=== PATIENT | female | born 1960 | race Caucasian/White ===

== ENCOUNTER 2023-10-04 09:10 | Outpatient (OUT) | payer BC, SELFPAY ==
[2023-10-04 09:51] LABS: Basophils Percent Auto 0.3 % (0.2-2.0); Eosinophils Absolute Auto 0.3 10^3/uL (0.0-0.7); Hematocrit 37.2 % (36.0-48.0); Hemoglobin 12.5 g/dL (12.0-16.0); Immature Granulocytes Abs Auto 0.01 10^3/uL (0.00-0.03); Immature Granulocytes Pct Auto 0.1 % (0.0-0.5); Lymphocytes Absolute Auto 1.6 10^3/uL (1.2-3.8); Lymphocytes Percent Auto 23.5 % (20.5-60.0); Mean Corpuscular HGB Conc 33.6 g/dL (29.9-35.2); Mean Corpuscular Hemoglobin 30.8 pg (26.7-34.0); Mean Corpuscular Volume 91.6 fL (81.0-99.0); Mean Platelet Volume 10.5 fL (9.5-13.5); Monocytes Absolute Auto 0.5 10^3/uL (0.3-0.8); Monocytes Percent Auto 6.8 % (1.7-12.0); Neutrophils Absolute Auto 4.5 10^3/uL (1.4-6.5); Neutrophils Percent Auto 65.3 % (43.0-75.0); Platelet Count 198 10^3/uL (150-450); Red Blood Count 4.06 10^6/uL (4.20-5.40); Red Cell Distribution Width 11.9 % (11.0-15.0); White Blood Count 6.9 10^3/uL (4.0-11.0)
[2023-10-04 10:02] LABS: Alanine Aminotransferase 19 U/L (14-59); Albumin Level 3.6 g/dL (3.4-5.0); Alkaline Phosphatase 146 U/L (46-116); Anion Gap 11.9; Aspartate Amino Transferase 19 U/L (15-37); BUN Creatinine Ratio 26.2; Calcium 9.7 mg/dL (8.5-10.1); Carbon Dioxide 29.2 mmol/L (21.0-32.0); Chloride 104 mmol/L (98-107); Estimated GFR (African America >60 (>=60); Estimated GFR (Non-African Ame >60 (>=60); Globulin 3.5 g/dL; Glucose 89 mg/dL (74-106); Magnesium 1.9 mg/dL (1.8-2.4); Phosphorus 3.8 mg/dL (2.6-4.7); Potassium 4.1 mmol/L (3.5-5.1); Sodium 141 mmol/L (136-145); Total Protein 7.1 g/dL (6.4-8.2)
[2023-10-04 10:05] LABS: Percent Iron Saturation 36.2 %
[2023-10-08 12:08] LABS: Vitamin B1 (Thiamine), Blood 126.1 nmol/L (66.5-200.0)
== END 2023-10-04 09:11 | disposition home or self-care (01) ==
PROVIDERS: PCP Family Medicine
DX: E03.9 Hypothyroidism, unspecified (principal); I10 Essential (primary) hypertension; Z98.84 Bariatric surgery status
CPT/HCPCS: 36415; 80053; 82306; 82607; 82728; 82746; 83540; 83550; 83735; 84100; 84425; 85025

== ENCOUNTER 2024-04-06 10:21 | Outpatient (OUT) | payer BC, SELFPAY ==
--- NOTE | 2024-04-06 10:24 | MM_ITS ---
Patient Name: DENI SYLVESTER MR#: [id number] : 1960 Exam Date: 04/06/2024 Ordering Doctor: DR Danelle Aiken M.D. RADIOLOGY REPORT PROCEDURE: MM TOMOSYNTHESIS SCREENING BI COMPARISON: MG MAMM SCREEN ZIA W CAD, 06/29/2019. INDICATIONS: Screening Calculator Name NCI Breast Cancer Risk Assessment Tool 5 Year Breast Cancer Risk 1.10% Lifetime Breast Cancer Risk 5.00% Personal Breast Cancer No Personal Ovarian Cancer No Treatments None Family Cancers Cousin-paternal with breast cancer at age ~60. LOCATION: [facility] BREAST COMPOSITION: There are scattered areas of fibroglandular density. FINDINGS: DIAGNOSTIC CATEGORY 2--BENIGN FINDING. NO CHANGE FROM COMPARISON. Scattered benign-appearing calcifications are present. Scattered benign-appearing lymph nodes are present. RIGHT BREAST: No significant suspicious finding. LEFT BREAST: No significant suspicious finding. RECOMMENDATIONS: ROUTINE MAMMOGRAM AND CLINICAL EVALUATION IN 12 MONTHS. PLEASE NOTE: A NORMAL MAMMOGRAM DOES NOT EXCLUDE THE POSSIBILITY OF BREAST CANCER. A CLINICALLY SUSPICIOUS PALPABLE LUMP SHOULD BE BIOPSIED. Dictated by: Renny Wilder MD on 04/06/2024 at 12:05 Approved by: Renny Wilder MD on 04/06/2024 at 12:07
--- NOTE | 2024-04-06 10:24 | XR_ITS ---
The [address] [address] Patient Name: DENI SYLVESTER MRN: [id number] date: 1960 Sex: F Assigned Patient Location: [facility] Current Patient Location: Accession/Order Number: [id number] Exam Date: 04/06/2024 10:30 Report Date: 04/07/2024 06:33 At the request of: VENANCIO AGUILAR Procedure: XR DEXA axial skeleton EXAMINATION: XR DEXA axial skeleton HISTORY: Menopausal Osteoporosis COMPARISON: No relevant comparison available. TECHNIQUE: Dual-energy X-ray absorptiometry (DXA) was performed. FINDINGS: SPINE ANALYSIS: Average bone mineral density is 1.358 g/cm2. T-score (standard deviation relative to young adult mean): 1.5 . HIP ANALYSIS: Lowest bone mineral density is within the left femoral neck, 0.946 g/cm2. T-score (standard deviation relative to young adult mean): -0.7 . XR/XR DEXA axial skeleton IMPRESSION: World Health Organization Classification: Normal - Low Fracture Risk FRAX: Cannot be calculated. Pharmacologic treatment recommendations * No uniform recommendation applies to all patients. Management plans must be individualized. * Consider initiating pharmacologic treatment in postmenopausal women and men >= 50 years of age who have the following: Primary fracture prevention: * T-score <= - 2.5 at the femoral neck, total hip, lumbar spine, 33% radius (some uncertainty with existing data) by DXA. * Low bone mass (osteopenia: T-score between - 1.0 and - 2.5) at the femoral neck or total hip by DXA with a 10-year hip fracture risk >= 3% or a 10-year major osteoporosis-related fracture risk >= 20% (i.e., clinical vertebral, hip, forearm, or proximal humerus) based on the [place]-adapted FRAXregistered model. Secondary fracture prevention: * Fracture of the hip or vertebra regardless of BMD [4, 5]. * Fracture of proximal humerus, pelvis, or distal forearm in persons with low bone mass (osteopenia: T-score between - 1.0 and - 2.5). The decision to treat should be individualized in persons with a fracture of the proximal humerus, pelvis, or distal forearm who do not have osteopenia or low BMD [12, 13]. Jose Armando MS, Dari SL, Sara KL, Randy EM, Mandeep KG, AJ, Govind ES. The clinician's guide to prevention and treatment of osteoporosis. Osteoporos Int. 2021;33(10):2099-7459. doi: 10.1007/i76963-100-27918-q. Epub 2021Oct 11. Erratum in: Osteoporos Int. 2021Jan 10;: PMID: 42754786; PMCID: [id number]. Electronically authenticated by: FARRAH MARTÍNEZ Date: 04/07/2024 06:33
== END 2024-04-06 10:22 | disposition home or self-care (01) ==
LOC: RAD 10:21
PROVIDERS: PCP Family Medicine; Visit Provider Family Medicine
DX: Z12.31 Encounter for screening mammogram for malignant neoplasm of breast (principal); M81.0 Age-related osteoporosis without current pathological fracture; Z80.3 Family history of malignant neoplasm of breast
CPT/HCPCS: 77063; 77067; 77080

== ENCOUNTER 2025-04-12 08:50 | Outpatient (OUT) | payer BC, SELFPAY ==
--- OUTSIDE RECORDS SUMMARY | 2023-10-09 06:00 | XMS_ITS | Continuity of Care Document ---
Author Organization [facility] Address [address] [facility] [place] [address] Phone Care Team Providers Care Ethics Manager Name Role Phone Lauren Browning CNP Unavailable Unavailable Procedures Procedure Date OFFICE/OUTPATIENT VISIT, EST OFFICE/OUTPATIENT VISIT, EST OFFICE/OUTPATIENT VISIT, EST POSTOP FOLLOW-UP VISIT POSTOP FOLLOW-UP VISIT Sleeve Gastrectomy LAP SLEEVE GASTRECTOMY OFFICE/OUTPATIENT VISIT, EST PSYCH DIAGNOSTIC EVALUATION PSYCL/NRPSYC TST PHY/QHP [facility] PSYCL/NRPSYC TST PHY/QHP OFFICE/OUTPATIENT VISIT, [facility] Advance Directives Directive Yes / No Effective Date File Name No Information Encounters Encounter Description Practice Location Reason(s) For Visit Diagnoses Date Provider Providers Copied on Encounter OFFICE/OUTPATI ENT VISIT, [facility], [address], [place], [place], [id number], [place] tel:[phone] [facility] No Information Nallely Aguilar. [address] [facility] [facility] [address], [place], [place], [id number], [place]. tel:[phone] Referring Provider: Lauren Browning, [address], [place], [address]. tel:[phone] OFFICE/OUTPATI ENT VISIT, [facility], [address] [place] [address] B, [place], [place], [id number], [place] tel:[phone] [facility] No Information Nallely Aguilar. [address] [facility] [address], [place], [place], [id number], [place]. tel:[phone] Referring Provider: Lauren Browning, [facility] [address] [facility], [place], [address]. tel:[phone] OFFICE/OUTPATI ENT VISIT, [facility], [address] [place] [address] B, [place], [id number], [place] tel:[phone] [facility] No Information Nallely Aguilar. [address] [place] [address] [address], [place], [place], [id number], [place]. tel:[phone] Referring Provider: Lauren Browning, [address] [place] [address] [address], [place], [address]. tel:[phone] [facility], [address] [place] [address] B, [place], [id number], [place] tel:[phone] [facility] No Information Nallely Aguilar. [address] [place] [address] [address], [place], [place], [id number], [place]. tel:[phone] Referring Provider: Lauren Browning, [address] [facility] [address], [place], [address]. tel:[phone], [address] [place] [address] B, [place], [id number], [place] tel:[phone] [facility] No Information Nallely Aguilar. [address] [facility], [place], [place], [id number], [place]. tel:[phone] Referring Provider: Lauren Browning, [address] [place] [address] [address], [place], [address]. tel:[phone] [facility], [address] [place] [address] [address], [place], [place], [id number], [place] tel:[phone] [facility] IP No Information Nallely Aguilar. [address], [place], [place], [address], [place]. tel:[phone] Referring Provider: Lauren Browning, [address], [place], [address]. tel:[phone] [facility] [employer] [employer] [facility], [address] [place] [address] [address], [place], [place], [id number], [place] tel:[phone] [facility] IP No Information Malcolm Vivas. [address] [place] [address] [address], [place], [place], [id number], [place]. tel:[phone] Referring Provider: Ortega Romano, [address], [place], [address]. tel:[phone] OFFICE/OUTPATI ENT VISIT, [facility], [address] [place] [address] [address], [place], [place], [id number], [place] tel:[phone] [facility] No Information Malcolm Vivas. [address] [place] [address] [address], [place], [place], [id number], [place]. tel:[phone] Referring Provider: Ortega Romano, [address] [facility] [address], [place], [address]. tel:[phone] PSYCH DIAGNOSTIC EVALUATION [facility], [address] [place] [address] [address], [place], [place], [address], [place] tel:[phone] [facility] No Information Laura Riley. [address] [place] [address] [address], [place], [place], [address], [place]. tel:[phone] Referring Provider: Osvaldo Sanchez, [address] [place] [address] [address], [place], [address]. tel:[phone] OFFICE/OUTPATI ENT VISIT, [facility], [address], [place], [place], [address], [place] tel:[phone] [facility] No Information Malcolm Vivas. [address] [place] [address] [address], [place], [place], [address], [place]. tel:[phone] Referring Provider: Ortega Romano, [address] [place] [address] [address], [place], [address]. tel:[phone] Family History Family Member Type Diagnosis Age At Onset No Information Payers Payer name Insurance type Covered democrat ID Vitaliy lucia(s) Alhaji [id number] Social History Type Description Quantity Date Captured Comments Sex Female Smoking Status No Information Chief Complaint And Reason For Visit No Information Reason For Referral Reason For Referral No Information History Of Present Illness Encounter Date Complaint History Of Prese nt Illness No Information Functional Status Date Functional Assessmen t No Information Instructions Date Instruction Additional Infor mation No Information Assessments Type Assessment Date No Information Patient Care Teams Name Effective Dates (start - stop) Status Members No Information
--- OUTSIDE RECORDS SUMMARY | 2025-04-12 08:55 | XMS_ITS | Clinical Summary ---
Author Organization [facility] Address [address] [place] [address] Care Team Providers Care Rn Hematology Name Role Phone Danelle Aiken MD Primary Care Provider [phone] Allergies Active AllergyReactionsCriticalityNoted DjhhQrjgucrhLfestjrhwxyJfvh17/14/2025 Other Reaction(s): Hives Medications MedicationSigDispense QuantityRefillsLast FilledStart DateEnd DateStatus levothyroxine (Synthroid, Levoxyl) 137 MCG tablet .DFXTRWK12/24/2025Active lisinopril 10 MG tablet .AXLUBSW25/24/2025Active fluticasone (Flonase) 50 MCG/ACT nasal spray Indications:OME (otitis media with effusion), right2 sprays on the right side twice daily. Shake gently. Before first use, prime pump. After use, clean tip and replace cap. 48 g 5Active Active Problems ProblemNoted DateDiagnosed DateHeart huygnn8312/29/20240880Cbzitqfnqxzaiy25/16/2025 Menopausal mykpiwhdzxsm21/16/2025Right otitis media with nevcogoc31/16/2025 Screening mammogram for breast fcragp2412/29/2024Wellness welnzpbnojo98/16/2025 Primary xkjqmxearwgh95/25/2014 Encounters DateTypeDepartmentCare SkwxAdswvtbiuyy67/14/2025Telephone [facility] [place] [facility] [address] [place] [phone] Anna Duran MA PST ynxjbedocbc95/08/2025 9:10 AM EDTOffice Visit [facility] [place] [facility] [address] [place] [address] Nikia Fu MD OME (otitis media with effusion), right (Primary Dx); ETD (Eustachian tube dysfunction), right; Conductive hearing loss of right ear with unrestricted hearing of left ear 03/23/2025 flowsheet [facility] [place] [facility] [address] [place] [address] Nikia Fu MD 03/23/20259402Plthda61/01/2025 9:30 AM EDTClinical Support [facility] [address] [place] [address] Lauren Schulz CCC-A Conductive hearing loss of right ear with unrestricted hearing of left ear (Primary Dx); Right otitis media with lpmnwnaz33/01/2025 flowsheet [facility] [place] [facility] [address] [place] [address] Lauren Schulz CCC-A from Last 3 Months Family History Medical HistoryRelationNameCommentsStrokeFatherCOPDMotherHeart failureMother RelationNameStatusCommentsFatherDeceasedMotherDeceased Social History Tobacco UseTypesPacks/DayYears UsedDateSmoking Tobacco: NeverSmokeless Tobacco: Never Tobacco Cessation:Counseling Given: Not Answered Alcohol UseStandard Drinks/WeekCommentsNever0 (1 standard drink = 0.6 oz pure alcohol)CommentsUnknownSex and Gender InformationValueDate RecordedSex Assigned at BirthNot on fileLegal JlgTiivfw22/15/2023 7:17 PM EDTGender Identity Not on fileSexual OrientationNot on file Last Filed Vital Signs Vital SignReadingTime TakenCommentsBlood Vfysmetp746/7703/23/2025 9:03 AM EDT Usyfb430003/23/2025 9:03 AM EDTTemperature--Respiratory Rate--Oxygen Saturation-- Inhaled Oxygen Concentration--Mgvvyb37.8 kg (165 lb)03/23/2025 9:03 AM EDTHeight 152.4 cm (5')03/23/2025 9:03 AM EDTBody Mass Index32.221 9:03 AM EDT Plan of Treatment DateTypeDepartmentCare Team (Latest Contact Info)Yitxderkxff14/09/2025 9:00 AM ESTOffice Visit [facility] [facility] [address] [facility] [address] [place] [phone] Nikia Fu MD [address] [facility] [address] [place] [address] Procedures Procedure NamePriorityDate/TimeAssociated DiagnosisCommentsAUDITORY FUNCTION BUUIIZcdbbcm67/01/2025 10:15 AM EDT from Last 3 Months Results * Auditory function tests (03/16/2025 10:15 AM EDT) Narrative Lauren Schulz, [facility] - 03/16/2025 10:15 AM EDT Right Ear: Mild to moderate conductive hearing loss above 250 Hz Left Ear: ?? Normal hearing Authorizing ProviderResult TypeResult StatusDehector Schulz [facility]-AAUDIOLOGY SERVICES ORDERABLESFinal Result from Last 3 [place] [address] MemberSubscriberPlan / Payer (Effective 2022-Present)Name:Suzie Peacock Member ID:[id number] Relation to Subscriber:SpouseName:Daniel Peacock Subscriber ID:[id number] Date of :1959 Address: [address] [place] [address] [address] [place] [address] Payer ID:Not on file Type:Not on file Address: [facility] [address] [place] [address] Care Teams Team MemberRelationshipSpecialtyStart DateEnd Date Danelle Aiken MD [address] [place] [address] [facility]12/28/24
--- OUTSIDE RECORDS SUMMARY | 2025-04-12 08:55 | XMS_ITS | Encounter Summary ---
Author Organization [facility] Address [address] [place] [address] Care Team Providers Care Runway Model Name Role Phone Danelle Aiken MD Primary Care Provider [phone] Reason for Visit * ReasonOnset DateCommentsPST agrvqkcdiut56/14/2025 Encounter Details DateTypeDepartmentCare Team (Latest Contact Info)Shzbzofxert23/14/2025Telephone [facility] [facility] [address] [place] [address] Anna Duran MA PST information Social History Tobacco UseTypesPacks/DayYears UsedDateSmoking Tobacco: NeverSmokeless Tobacco: NeverAlcohol UseStandard Drinks/WeekCommentsNever0 (1 standard drink = 0.6 oz pure alcohol)CommentsUnknownSex and Gender InformationValueDate Recorded Sex Assigned at BirthNot on fileLegal RumWdpcct85/15/2023 7:17 PM EDTGender IdentityNot on fileSexual OrientationNot on filedocumented as of this encounter Miscellaneous Notes * Telephone Encounter - Pamela Fu - 04/04/2025 8:50 AM EDT Pt called back/told pt appt info for [facility]. * Telephone Encounter - Anna Duran MA - 03/29/2025 4:14 PM EDT Called left message to call back office. Her PST is scheduled for 04/12 At 9:00 am at [facility] documented in this encounter Plan of Treatment DateTypeDepartmentCare Team (Latest Contact Info)Ldhabbzrqbh79/09/2025 9:00 AM ESTOffice Visit [facility] [address] [facility] [address] [place] [address] Nikia Fu MD [address] [facility] [address] [place] [address] documented as of this encounter Visit Diagnoses Not on filedocumented in this encounter Care Teams Team MemberRelationshipSpecialtyStart DateEnd Date Danelle Aiken MD [address] [place] [phone] PCP - GeneralFamily Medicine12/28/24documented as of this encounter
--- OUTSIDE RECORDS SUMMARY | 2025-04-12 08:55 | XMS_ITS | Clinical Summary ---
Author Organization [facility] Address [address] [place] [address] Care Team Providers Care Education Rep Name Role Phone Unavailable Primary Care Provider Unavailabl e Social History Tobacco UseTypesPacks/DayYears UsedDateSmoking Tobacco: Never AssessedUT Safety & EnvironmentAnswerDate RecordedFear of Current or Ex-PartnerNot on file 08/07/2023Emotionally AbusedNot on file08/07/2023hysically AbusedNot on file 08/07/2023Sexually AbusedNot on file08/07/2023hysically or Sexually AbusedNot on file08/07/2023CommentsUnknownSex and Gender InformationValueDate RecordedSex Assigned at BirthNot on fileLegal QbmLhpcyr67/30/2022 12:38 AM EDT Gender IdentityNot on fileSexual OrientationNot on file Last Filed Vital Signs Vital SignReadingTime TakenCommentsBlood Ygigphui836/8807 2:33 PM EDT Pulse--Temperature--Respiratory Rate--Oxygen Qxzmuyoiru43%12/27/2020 2:30 PM EDT Inhaled Oxygen Concentration--Nehxqx102 kg (242 lb)12/27/2020 2:27 PM EDTHeight 154.9 cm (5' 1 )12/27/2020 2:27 PM EDTBody Mass Index45.7312/27/2020 2:27 PM EDT Plan of Treatment Not on file
--- NOTE | 2025-04-12 09:00 | ECG_ITS ---
The [facility] Test Date: 2025-04-12 Pat Name: DENI SYLVESTER Department: Room: - Gender: Female [employer] Consultant: : 1960 Requested By: LEANDER HEARD Order Number: [id number] Reading MD: DONELL CAMPOS Measurements Intervals [place] Rate: 57 P: 8 MD: 149 QRS: 44 QRSD: 130 T: 11 QT: 414 QTc: 403 Interpretive Statements SINUS BRADYCARDIA RIGHT BUNDLE BRANCH BLOCK [120+ ms QRS DURATION, UPRIGHT V1, 40+ ms S IN I/aVL/V4/V5/V6] No previous ECG available for comparison Electronically Signed On 04-12-2025 13:13:37 EDT by DONELL CAMPOS
[2025-04-12 09:46] LABS: Hematocrit 37.5 % (36.0-48.0); Hemoglobin 12.7 g/dL (12.0-16.0); Immature Granulocytes Abs Auto 0.00 10^3/uL (0.00-0.03); Immature Granulocytes Pct Auto 0.0 % (0.0-0.5); Lymphocytes Absolute Auto 1.5 10^3/uL (1.2-3.8); Mean Corpuscular HGB Conc 33.9 g/dL (29.9-35.2); Mean Corpuscular Hemoglobin 31.4 pg (26.7-34.0); Mean Corpuscular Volume 92.8 fL (81.0-99.0); Platelet Count 179 10^3/uL (150-450); Red Blood Count 4.04 10^6/uL (4.20-5.40); White Blood Count 6.0 10^3/uL (4.0-11.0)
[2025-04-12 12:47] LABS: INR 0.95; Partial Thromboplastin Time 27.5 sec (22.3-36.2); Prothrombin Time 10.1 sec (9.0-11.6)
== END 2025-04-12 08:51 | disposition home or self-care (01) ==
LOC: PST 08:52
PROVIDERS: PCP Family Medicine; Visit Provider Otolaryngology
DX: Z01.810 Encounter for preprocedural cardiovascular examination (principal); Z01.812 Encounter for preprocedural laboratory examination; H69.03 Patulous Eustachian tube, bilateral
CPT/HCPCS: 85025; 85610; 85730; 93005

== ENCOUNTER 2025-04-21 10:22 | Day surgery (SDC) | payer BC, SELFPAY ==
[2025-04-12 09:30] VITALS: BP 140/85; PULSE 61; TEMP 36.3; O2SAT 98; BMI 30.6
[2025-04-21] VITALS (9 sets, daily range): BP systolic 162–171; BP diastolic 64–78; PULSE 75–85; TEMP 36.1; O2SAT 96–99; BMI 30.6
--- NOTE | 2025-04-21 | OP_ITS ---
OPERATION DATE: 04/21/2025 PRIMARY CARE PHYSICIAN: Danelle Aiken M.D. SURGEON: Nikia Fu M.D. PREOPERATIVE DIAGNOSIS: Right eustachian tube dysfunction and otitis media with effusion. POSTOPERATIVE DIAGNOSIS: Right eustachian tube dysfunction and otitis media with effusion PROCEDURE: Right myringotomy and tube. ANESTHESIA: General LMA. COMPLICATIONS: None. FINDINGS: Right serous effusion. No nasopharyngeal pathology. INDICATIONS: This 64-year-old woman presented with right otitis media with effusion, unresponsive to aggressive medical management. PROCEDURE: Patient identified in the holding area and taken back to the OR where she was placed in the supine position. After induction of general anesthesia by LMA, two Afrin soaked pledgets were placed in the right side of the nose. Then the right ear was approached with the otomicroscope. An anterior radial myringotomy was performed and a modified Yuri?s T-tube was folded, inserted through the myringotomy and opened in the middle ear using microdissection. Then the Afrin soaked patties were removed, and a 0 degree nasal endoscope was used to examine the nasopharynx and verify that there was no sign of a nasopharyngeal carcinoma. Patient was then awakened and taken to the recovery room in good condition. GERALDINE
--- OUTSIDE RECORDS SUMMARY | 2025-04-21 10:28 | XMS_ITS | Encounter Summary ---
Author Organization [facility] Address [address] [facility] [place] [address] Care Team Providers Care Director Of Field Sales Name Role Phone Danelle Aiken MD Primary Care Provider [phone] Reason for Visit * ReasonOnset DateCommentshorse riding after tube?04/13/2025 Encounter Details DateTypeDepartmentCare Team (Latest Contact Info)Rgliwsagqvv38/29/2025Telephone [facility] [address] [place] [address] Nikia Fu MD [address] [place] [address] horse riding after tube? Social History Tobacco UseTypesPacks/DayYears UsedDateSmoking Tobacco: NeverSmokeless Tobacco: NeverAlcohol UseStandard Drinks/WeekCommentsNever0 (1 standard drink = 0.6 oz pure alcohol)CommentsUnknownSex and Gender InformationValueDate Recorded Sex Assigned at BirthNot on fileLegal EpeHilomk54/15/2023 7:17 PM EDTGender IdentityNot on fileSexual OrientationNot on filedocumented as of this encounter Miscellaneous Notes * Telephone Encounter - Pamela Fu - 04/13/2025 3:27 PM EDT Left a detailed message on pt's vm. * Telephone Encounter - Nikia Fu MD - 04/13/2025 2:40 PM EDT She should not go horse riding for at least 24 hours after procedure * Telephone Encounter - Pamela Fu - 04/13/2025 1:55 PM EDT Pt is scheduled for tube 04/21/25. She wants to know if you can go horse back riding after the tube is put in. documented in this encounter Plan of Treatment DateTypeDepartmentCare Team (Latest Contact Info)Efzqzaqshyl80/09/2025 9:00 AM ESTOffice Visit [facility] [address] [facility] [address] [place] [address] Nikia Fu MD [address] [facility] [address] [place] [address] documented as of this encounter Visit Diagnoses Not on filedocumented in this encounter Care Teams Team MemberRelationshipSpecialtyStart DateEnd Date Danelle Aiken MD [address] [place] [phone] PCP - GeneralFamily Medicine12/28/24documented as of this encounter
--- OUTSIDE RECORDS SUMMARY | 2025-04-21 10:28 | XMS_ITS | Clinical Summary ---
Author Organization [facility] Address [address] [place] [address] Care Team Providers Care Corn Grower Name Role Phone Danelle Aiken MD Primary Care Provider [phone] Allergies Active AllergyReactionsCriticalityNoted KlovGwbfhjqcTpnpmposyovNhel83/14/2025 Other Reaction(s): Hives Medications MedicationSigDispense QuantityRefillsLast FilledStart DateEnd DateStatus levothyroxine (Synthroid, Levoxyl) 137 MCG tablet .ITMRDDN04/24/2025Active lisinopril 10 MG tablet .OWUMSJD97/24/2025Active fluticasone (Flonase) 50 MCG/ACT nasal spray Indications:OME (otitis media with effusion), right2 sprays on the right side twice daily. Shake gently. Before first use, prime pump. After use, clean tip and replace cap. 48 g 5Active Active Problems ProblemNoted DateDiagnosed DateHeart ipfase5512/29/20243587Gklnknceafxaob74/16/2025 Menopausal gfaotzasfbgx90/16/2025Right otitis media with qvlhegjz67/16/2025 Screening mammogram for breast mlfxta7912/29/2024Wellness gqeyhkczvfq99/16/2025 Primary nbelbouddvmk32/25/2014 Encounters DateTypeDepartmentCare DogyQjhlhflsbji38/29/2025Telephone [facility] [address] [place] [address] [place] [address] Nikia Fu MD horse riding after tube?04/12/2025linisync Result Encounter [facility] External Department Unsolicited Nikia Fu MD 04/12/2025linisync Result Encounter [facility] External Department Unsolicited Nikia Fu MD 03/29/2025Telephone [facility] [address] [facility] [address] [place] [phone] Anna Duran MA PST vefrgyyjjvk63/08/2025 9:10 AM EDTOffice Visit [facility] [address] [facility] [address] [place] [address] Nikia Fu MD OME (otitis media with effusion), right (Primary Dx); ETD (Eustachian tube dysfunction), right; Conductive hearing loss of right ear with unrestricted hearing of left ear 03/23/2025amboo flowsheet [facility] [address] [address] [place] [address] Nikia Fu MD 03/23/20258009Yopnuz56/01/2025 9:30 AM EDTClinical Support [facility] [address] [place] [address] Lauren Schulz CCC-A Conductive hearing loss of right ear with unrestricted hearing of left ear (Primary Dx); Right otitis media with xsbnbcri49/01/2025amboo flowsheet [facility] [address] [facility] [address] [place] [address] Lauren Schulz CCC-A from Last 3 Months Family History Medical HistoryRelationNameCommentsStrokeFatherCOPDMotherHeart failureMother RelationNameStatusCommentsFatherDeceasedMotherDeceased Social History Tobacco UseTypesPacks/DayYears UsedDateSmoking Tobacco: NeverSmokeless Tobacco: Never Tobacco Cessation:Counseling Given: Not Answered Alcohol UseStandard Drinks/WeekCommentsNever0 (1 standard drink = 0.6 oz pure alcohol)CommentsUnknownSex and Gender InformationValueDate RecordedSex Assigned at BirthNot on fileLegal ZlhUgmmhf17/15/2023 7:17 PM EDTGender Identity Not on fileSexual OrientationNot on file Last Filed Vital Signs Vital SignReadingTime TakenCommentsBlood Omamkwed140/7703/23/2025 9:03 AM EDT Qmnbi198903/23/2025 9:03 AM EDTTemperature--Respiratory Rate--Oxygen Saturation-- Inhaled Oxygen Concentration--Somotp42.8 kg (165 lb)03/23/2025 9:03 AM EDTHeight 152.4 cm (5')03/23/2025 9:03 AM EDTBody Mass Index32.221 9:03 AM EDT Plan of Treatment DateTypeDepartmentCare Team (Latest Contact Info)Tcwrtnntdgb27/09/2025 9:00 AM ESTOffice Visit [facility] [address] [facility] [address] [place] [address] Nikia Fu MD [address] [facility] [address] [place] [address] Procedures Procedure NamePriorityDate/TimeAssociated DiagnosisCommentsCCF APTTRoutine 04/12/2025 9:30 AM EDT SRMCOH PROTHROMBIN TIME INR W/O PRWASftmdph95/28/2025 9:30 AM EDT ALL CBC WITH AUTO YUCIOhedrlh83/28/2025 9:30 AM EDT ECG 12-LEAD04/12/2025 7:28 AM EDT AUDITORY FUNCTION ODXPNSdgrzla48/01/2025 10:15 AM EDT from Last 3 Months Results * SRMCOH PROTHROMBIN TIME INR W/O COUM (04/12/2025 9:30 AM EDT)ComponentValueRef RangeTest MethodAnalysis TimePerformed AtPathologist SignaturePROTHROMBIN TIME 10.19.0 - 11.6 secTBHTBH INR0.95TBHComment: DESIRED INR: 2.0-3.0 CONDITIONS NOT LISTED BELOW 2.5-3.5 FOR PROSTHETIC HEART VALVE REPLACEMENT 2.5-3.5 RECURRENT THROMBOSIS Specimen (Source)Anatomical Location / LateralityCollection Method / Volume Collection TimeReceived Time04/12/2025 9:30 AM EDT1 9:36 AM EDT Narrative [facility] - 04/12/2025 1:11 PM EDT Authorizing ProviderResult TypeResult StatusHilary H Timmis [facility]LL[place]ISYNCFinal ResultPerforming OrganizationAddressty/State/ZIP CodePhone Number [facility] * [facility] APTT (04/12/2025 9:30 AM EDT)ComponentValueRef RangeTest MethodAnalysis TimePerformed AtPathologist SignaturePARTIAL THROMBOPLASTIN TIME27.522.3 - 36.2 secTBHSpecimen (Source)Anatomical Location / LateralityCollection Method / VolumeCollection TimeReceived Time04/12/2025 9:30 AM EDT1 9:36 AM EDT Narrative [facility] - 04/12/2025 1:11 PM EDT Authorizing ProviderResult TypeResult StatusHilary H Timmis [facility]LLLINISYNCFinal ResultPerforming OrganizationAddressCity/State/ZIP CodePhone Number [facility] * (ABNORMAL) ALL CBC WITH AUTO DIFF (04/12/2025 9:30 AM EDT)ComponentValueRef RangeTest MethodAnalysis TimePerformed AtPathologist SignatureTBH WBC6.04.0 - 11.0 10 3/uLTBHTBH RBC4.04(L)4.20 - 5.40 10 6/uLTBHTBH HGB12.712.0 - 16.0 g/dL TBHTBH HCT37.536.0 - 48.0 %TBHTBH MCV92.881.0 - 99.0 fLTBHTBH MCH31.426.7 - 34.0 pgTBHTBH MCHC33.929.9 - 35.2 g/dLTBHTBH RDW11.911.0 - 15.0 %TBHTBH TKP293 150 - 450 10 3/uLTBHTBH MPV10.49.5 - 13.5 fLTBHNEUTROPHILS PERCENT AUTO62.6 43.0 - 75.0 %TBHLYMPHOCYTES PERCENT AUTO25.020.5 - 60.0 %TBHMONOCYTES PERCENT AUTO7.21.7 - 12.0 %TBHTBH EO %4.90.9 - 7.0 %TBHBASOPHILS PERCENT AUTO0.30.2 - 2.0 %TBHIMMATURE GRANULOCYTES PCT AUTO0.00.0 - 0.5 %TBHNEUTROPHILS ABSOLUTE AUTO3.71.4 - 6.5 10 3/uLTBHLYMPHOCYTES ABSOLUTE AUTO1.51.2 - 3.8 10 3/uLTBH MONOCYTES ABSOLUTE AUTO0.40.3 - 0.8 10 3/uLTBHTBH EO #0.30.0 - 0.7 10 3/uLTBH BASOPHILS ABSOLUTE AUTO0.00.0 - 0.1 10 3/uLTBHIMMATURE GRANULOCYTES ABS AUTO 0.000.00 - 0.03 10 3/uLTBHSpecimen (Source)Anatomical Location / Laterality Collection Method / VolumeCollection TimeReceived Time04/12/2025 9:30 AM EDT 04/12/2025 9:47 AM EDT Narrative [facility] - 04/12/2025 9:48 AM EDT Authorizing ProviderResult TypeResult StatusHilary H Timmis MDCLINISYNCFinal ResultPerforming OrganizationAddressCity/State/ZIP CodePhone Number [facility] * ECG 12-LEAD (04/12/2025 7:28 AM EDT)Anatomical RegionLateralityModalityOther Specimen (Source)Anatomical Location / LateralityCollection Method / Volume Collection TimeReceived Time04/12/2025 7:28 AM EDT Narrative 04/12/2025 1:13 PM EDT [facility] ?[address] ? [place] [address] ? Electrocardiograph Report ? Signed ? Patient: DENI SYLVESTER L ? MR#: [id number] ?? : 1960 ?Acct:[id number] ?? Age/Sex: 64 / F ?ADM Date: 04/12/25 ?? Loc: PST ? Attending Dr: Nikia Fu M.D. ? Ordering Physician: Nikia Fu M.D. ?? Date of Service: 04/12/25 ?? Procedure(s): ECG 12 lead ?? Accession Number(s): [id number] ? cc: ?[facility] ? Test Date: ?2025-04-12 ?? Pat Name: ? DENI NGA ?Department: ? Room: ? - ?? Gender: ? Female ? 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 Requested By: NIKIA TIMMIS ?? Order Number: [id number] ?Reading MD: ?? FILIBERTO SHELLEY ? Measurements ?? Intervals ?[place] ? Rate: ? 57 ? P: ?8 ?? MN: ? 149 ?QRS: ?44 ?? QRSD: ? 130 ?T: ?11 ?? QT: ? 414 ? QTc: ?403 ? Interpretive Statements ?? SINUS BRADYCARDIA ?? RIGHT BUNDLE BRANCH BLOCK [120+ ms QRS DURATION, UPRIGHT V1, 40+ ms S IN ?? I/aVL/V4/V5/V6] ?? No previous ECG available for comparison ?? Electronically Signed On 04-12-2025 13:13:37 EDT by FILIBERTO SHELLEY ? Dictated By: ?Filiberto Shelley M.D. ? Signed By: ?10/28/25 1313 ? DD/ 7 ? TD/TT: ? Dental Insurance Biller: Procedure Note Radiology, Radiologist, - 04/12/2025 [place] [address] Electrocardiograph Report Signed Patient: DENI SYLVESTER LMR#: [id number] : 1960cct:[id number] Age/Sex: 64 / FADM Date: 04/12/25 Loc: [facility] Attending Dr: Nikia Fu M.D. Ordering Physician: Nikia Fu M.D. 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 Signed By:04/12/25 1313 DD/ 7 TD/TT: Dental Insurance Biller: Authorizing ProviderResult TypeResult StatusHilamelody Fu MDCLINISYNC IMAGING Final Result * Auditory function tests (03/16/2025 10:15 AM EDT) Narrative Lauren Schulz, [facility] - 03/16/2025 10:15 AM EDT Right Ear: Mild to moderate conductive hearing loss above 250 Hz Left Ear: ?? Normal hearing Authorizing ProviderResult TypeResult StatusJhoanjackie Mckeon Zeus [facility] SERVICES ORDERABLESFinal Result from Last 3 Months Insurance Care Teams Team MemberRelationshipSpecialtyStart DateEnd Date Danelle Aiken MD [address] [place] [phone] PCP - GeneralFamily Medicine12/28/24
--- OUTSIDE RECORDS SUMMARY | 2025-04-21 10:28 | XMS_ITS | Encounter Summary ---
Author Organization [facility] Address [address] [facility] [place] [address] Care Team Providers Care Lacing Presser Name Role Phone Danelle Aiken MD Primary Care Provider Encounter Details DateTypeDepartmentCare Team (Latest Contact Info)Ucfniiooeru70/28/2025linisync Result Encounter [facility] External Department Unsolicited Nikia Fu MD [address] [facility] [address] [place] [address] Social History Tobacco UseTypesPacks/DayYears UsedDateSmoking Tobacco: NeverSmokeless Tobacco: NeverAlcohol UseStandard Drinks/WeekCommentsNever0 (1 standard drink = 0.6 oz pure alcohol)CommentsUnknownSex and Gender InformationValueDate Recorded Sex Assigned at BirthNot on fileLegal BfkXalfrg98/15/2023 7:17 PM EDTGender IdentityNot on fileSexual OrientationNot on filedocumented as of this encounter Plan of Treatment DateTypeDepartmentCare Team (Latest Contact Info)Sqvkxovmxnc10/09/2025 9:00 AM ESTOffice Visit [facility] [place] [facility] [address] [place] [address] Nikia Fu MD [address] [place] [address] documented as of this encounter Procedures Procedure NamePriorityDate/TimeAssociated DiagnosisCommentsSRMCOH PROTHROMBIN TIME INR W/O AYKSGqkcthz29/28/2025 9:30 AM EDT [facility] RECKCtqevjx63/28/2025 9:30 AM EDT ALL CBC WITH AUTO CRVQHvyvhve93/28/2025 9:30 AM EDT documented in this encounter Results * [facility] APTT (04/12/2025 9:30 AM EDT)ComponentValueRef RangeTest MethodAnalysis TimePerformed AtPathologist SignaturePARTIAL THROMBOPLASTIN TIME27.522.3 - 36.2 secTBHSpecimen (Source)Anatomical Location / LateralityCollection Method / VolumeCollection TimeReceived Time04/12/2025 9:30 AM EDT1 9:36 AM EDT Narrative [facility] - 04/12/2025 1:11 PM EDT Authorizing ProviderResult TypeResult StatusHilary H Timmis MDCLINISYNCFinal ResultPerforming OrganizationAddressCity/State/ZIP CodePhone Number [facility] * SRMCOH PROTHROMBIN TIME INR W/O COUM (04/12/2025 9:30 AM EDT)ComponentValueRef RangeTest MethodAnalysis TimePerformed AtPathologist SignaturePROTHROMBIN TIME 10.19.0 - 11.6 secTTB INR0.95TBHComment: DESIRED INR: 2.0-3.0 CONDITIONS NOT LISTED BELOW 2.5-3.5 FOR PROSTHETIC HEART VALVE REPLACEMENT 2.5-3.5 RECURRENT THROMBOSIS Specimen (Source)Anatomical Location / LateralityCollection Method / Volume Collection TimeReceived Time04/12/2025 9:30 AM EDT1 9:36 AM EDT Narrative [facility] - 04/12/2025 1:11 PM EDT Authorizing ProviderResult TypeResult StatusHilary H Timmis MDCLINISYNCFinal ResultPerforming OrganizationAddressCity/State/ZIP CodePhone Number [facility] * (ABNORMAL) ALL CBC WITH AUTO DIFF (04/12/2025 9:30 AM EDT)ComponentValueRef RangeTest MethodAnalysis TimePerformed AtPathologist SignatureTBH WBC6.04.0 - 11.0 10 3/uLTBHTBH RBC4.04(L)4.20 - 5.40 10 6/uLTBHTBH HGB12.712.0 - 16.0 g/dL TBHTBH HCT37.536.0 - 48.0 %TBHTBH MCV92.881.0 - 99.0 fLTBHTBH MCH31.426.7 - 34.0 pgTBHTBH MCHC33.929.9 - 35.2 g/dLTBHTBH RDW11.911.0 - 15.0 %TBHTBH HMU551 150 - 450 10 3/uLTBHTBH MPV10.49.5 - [...] H Timmis MDCLINISYNCFinal ResultPerforming OrganizationAddressCity/State/ZIP CodePhone Number [facility] documented in this encounter Visit Diagnoses Not on filedocumented in this encounter Care Teams Team MemberRelationshipSpecialtyStart DateEnd Date Danelle Aiken MD [address] [place] [address] PCP - GeneralFamily Medicine12/28/24documented as of this encounter
--- OUTSIDE RECORDS SUMMARY | 2025-04-21 10:28 | XMS_ITS | Clinical Summary ---
Author Organization [facility] Address [address] [place] [address] Care Team Providers Care Pearl Peller Name Role Phone Unavailable Primary Care Provider Unavailabl e Social History Tobacco UseTypesPacks/DayYears UsedDateSmoking Tobacco: Never AssessedUT Safety & EnvironmentAnswerDate RecordedFear of Current or Ex-PartnerNot on file 08/07/2023Emotionally AbusedNot on file08/07/2023hysically AbusedNot on file 08/07/2023Sexually AbusedNot on file08/07/2023hysically or Sexually AbusedNot on file08/07/2023CommentsUnknownSex and Gender InformationValueDate RecordedSex Assigned at BirthNot on fileLegal YbmNwjczm01/30/2022 12:38 AM EDT Gender IdentityNot on fileSexual OrientationNot on file Last Filed Vital Signs Vital SignReadingTime TakenCommentsBlood Hyptvubh297/8807 2:33 PM EDT Pulse--Temperature--Respiratory Rate--Oxygen Kopobsjgkm28%12/27/2020 2:30 PM EDT Inhaled Oxygen Concentration--Habcet338 kg (242 lb)12/27/2020 2:27 PM EDTHeight 154.9 cm (5' 1 )12/27/2020 2:27 PM EDTBody Mass Index45.7312/27/2020 2:27 PM EDT Plan of Treatment Not on file
--- OUTSIDE RECORDS SUMMARY | 2025-04-21 10:28 | XMS_ITS | Encounter Summary ---
Author Organization [facility] Address [address] [facility] [place] [address] Care Team Providers Care Economic Forecaster Name Role Phone Danelle Aiken MD Primary Care Provider [phone] Encounter Details DateTypeDepartmentCare Team (Latest Contact Info)Enruxbaoyiq50/28/2025linisync Result Encounter [facility] External Department Unsolicited Leander Fu MD [address] [place] [address] Social History Tobacco UseTypesPacks/DayYears UsedDateSmoking Tobacco: NeverSmokeless Tobacco: NeverAlcohol UseStandard Drinks/WeekCommentsNever0 (1 standard drink = 0.6 oz pure alcohol)CommentsUnknownSex and Gender InformationValueDate Recorded Sex Assigned at BirthNot on fileLegal MgwFfpcax80/15/2023 7:17 PM EDTGender IdentityNot on fileSexual OrientationNot on filedocumented as of this encounter Plan of Treatment DateTypeDepartmentCare Team (Latest Contact Info)Oohhlnecnqm36/09/2025 9:00 AM ESTOffice Visit [facility] [place] [facility] [address] [place] [address] Leander Fu MD [address] [place] [place] [address] documented as of this encounter Procedures Procedure NamePriorityDate/TimeAssociated DiagnosisCommentsECG 12-LEAD04/12/2025 7:28 AM EDT documented in this encounter Results * ECG 12-LEAD (04/12/2025 7:28 AM EDT)Anatomical RegionLateralityModalityOther Specimen (Source)Anatomical Location / LateralityCollection Method / Volume Collection TimeReceived Time04/12/2025 7:28 AM EDT Narrative 04/12/2025 1:13 PM EDT [facility] ?[address] ? [place] [address] ? Electrocardiograph Report ? Signed ? Patient: NGA,SUZIE L ? MR#: [id number] ?? : 1960 ?Acct:[id number] ?? Age/Sex: 64 / F ?ADM Date: 04/12/25 ?? Loc: PST ? Attending Dr: Leander Fu M.D. ? Ordering Physician: Leander Fu M.D. ?? Date of Service: 04/12/25 ?? Procedure(s): ECG 12 lead ?? Accession Number(s): [id number] ? cc: ?[facility] ? Test Date: ?2025-04-12 ?? Pat Name: ? SUZIE NGA ?Department: ? Room: ? - ?? Gender: ? Female ? 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 Requested By: LEANDER FU ?? Order Number: [id number] ?Reading MD: ?? DONELL SHELLEY ? Measurements ?? Intervals ?[place] ? Rate: ? 57 ? P: ?8 ?? [place]: ? 149 ?QRS: ?44 ?? QRSD: ? 130 ?T: ?11 ?? QT: ? 414 ? QTc: ?403 ? Interpretive Statements ?? SINUS BRADYCARDIA ?? RIGHT BUNDLE BRANCH BLOCK [120+ ms QRS DURATION, UPRIGHT V1, 40+ ms S IN ?? I/aVL/V4/V5/V6] ?? No previous ECG available for comparison ?? Electronically Signed On 04-12-2025 13:13:37 EDT by DONELL SHELLEY ? Dictated By: ?Donell Shelley M.D. ? Signed By: ?04/12/25 1313 ? DD/ 7 ? TD/TT: ? Bioprocessing Manufacturing Technician: Procedure Note Radiology, Radiologist, MD - 04/12/2025 [place] [address] Electrocardiograph Report Signed Patient: SUZIE SYLVESTER LMR#: [id number] : 2Acct:[id number] Age/Sex: 64 / FADM Date: 04/12/25 Loc: PST Attending Dr: Leander Fu M.D. Ordering Physician: Leander Fu M.D. 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 Signed By:04/12/25 1313 DD/ 0728 TD/TT: Bioprocessing Manufacturing Technician: Authorizing ProviderResult TypeResult StatusHilamelody Fu MDCLINISYNC IMAGING Final Result documented in this encounter Visit Diagnoses Not on filedocumented in this encounter Care Teams Team MemberRelationshipSpecialtyStart DateEnd Date Danelle Aiken MD [address] [place] [address] PCP - GeneralFamily Medicine12/28/24documented as of this encounter
--- OUTSIDE RECORDS SUMMARY | 2025-04-21 10:30 | XMS_ITS | CCD ---
Author Organization [facility] Care Team Providers Care Health Associate Name Role Phone RENÉE, DR COOK Admitting Unavailable RENÉE, DR COOK Attending Unavailable RENÉE, DR COOK Consulting Unavailable LAUREN, DR DANELLE Burton Primary Care Unavailable LAUREN, DR DANELLE Burton Primary Care Unavailable RENÉE, DR COOK Attending Unavailable RENÉE, DR COOK Consulting Unavailable RENÉE, DR COOK Admitting Unavailable LAUREN, DR DANELLE Burton Consulting Unavailable LAUREN, DR DANELLE Burton Primary Care Unavailable LAUREN, DR DANELLE Burton Admitting Unavailable LAUREN, DR DANELLE Burton Attending Unavailable Danelle Aguilar MD Primary Care Provider NIKIA HEARD Attending Unavailable LAUREN SCHULZ Attending Unavailable NIKIA HEARD Attending Unavailable Danelle Aguilar MD Primary Care Provider Allergies Allergy ClassificationReported Allergen(s)Allergy TypeDate of OnsetReaction(s) Facility (12 sources)FenofibrateDrug Zfcthxy36-30-0887[facility] Medications Current Medications MedicationDrug Class(es)DatesSig (Normalized)Sig (Original)fluticasone propionate 0.05 mg/actuat metered dose nasal spray (11 sources)CorticosteroidStart: 35-35-5804ffkmwbgbrer (Flonase) 50 MCG/ACT nasal spray Indications: OME (otitis media with effusion), right 2sprays on the right side twice daily. Shake gently. Before first use, prime pump. After use, clean tip and replace cap. 48 g 3 01/04/2025 Activelevothyroxine sodium 0.137 mg oral tablet (12 sources)l-ThyroxineStart: 19-40-6643jpjbovmdvcqzh (Synthroid, Levoxyl) 137 MCG tablet .COMPLEX 09/06/2024 Activelisinopril 10 mg oral tablet (12 sources)Angiotensin Converting Enzyme InhibitorStart: 22-24-8737mwendldhvr 10 MG tablet .COMPLEX 09/06/2024 ActivepredniSONE 20 mg oral tablet (2 sources)Start: 01-04-2025 End: 05-96-8623fwoc 1 tablet by mouth in the morningpredniSONE (Deltasone) 20 MG tablet Indications: OME (otitis media with effusion), right Take 1 tablet (20 mg) by mouth in the morning and 1 tablet (20 mg) before bedtime. Do all this for 6 days. 12 tablet 01/04/2025 01/10/2025 Active Problems Active Problems Problem ClassificationProblemDateDocumented DateEpisodic/ChronicEssential hypertension (17 sources)Essential (primary) hypertension; Translations: [Essential hypertension]Onset: 61-64-9124PgsdcqmXvvyzxdjqxoe (12 sources)Menopausal osteoporosis; Translations: [Age-related osteoporosis without current pathological fracture]Onset: 647398-44-7430WxponqhVrwyv ear and sense organ disorders (3 sources)Conductive hearing loss, unilateral, right ear, with unrestricted hearing on the contralateral side; Translations: [Conductive hearing loss, unilateral]57-40-9439SsglgtdClihz gastrointestinal disorders (5 sources)Bariatric surgery status; Translations: [BARIATRIC SURGERY STATUS] Onset: 74-72-0603HcyijrtlIjuhhgf disorders (13 sources)Hypothyroidism, unspecified; Translations: [Hypothyroidism]Onset: hronic Past or Other Problems Problem ClassificationProblemDateDocumented DateEpisodic/ChronicHeart valve disorders (12 sources)Heart murmur; Translations: [Cardiac murmur, unspecified]Onset: 898883-47-7126XjorselmGeewd screening for suspected conditions (not mental disorders or infectious disease) (12 sources)Patient encounter status; Translations: [Encounter for screening mammogram for malignant neoplasm of breast]Onset: [id number] Otitis media and related conditions (19 sources)Otitis media; Translations: [Unspecified nonsuppurative otitis media, right ear]Onset: 037636-99-3939Wjklqctr Results Test NameValueInterpretationReference RangeFacilityALL CBC WITH AUTO DIFFon 15-95-5802KGSVGUGYF ABSOLUTE AUTO0.0NOMS HealthcareBasophils/100 WBC (Bld)0.3 % 0.2 - 2.0 %NOMS HealthcareEosinophils/100 WBC (Bld)4.9 %0.9 - 7.0 %[facility] CenterErythrocyte distribution width (RBC) [Ratio]11.9 %11.0 - 15.0 %NOMCox NorthHematocrit (Bld) [Volume fraction]37.5 %36.0 - 48.0 %[facility] Hemoglobin (Bld) [Mass/Vol]12.7 g/dL12.0 - 16.0 g/dLSt. Joseph Medical CenterIMMATURE GRANULOCYTES ABS AUTO0.00NOWestern Missouri Medical CenterImmature granulocytes/100 WBC (Bld)0.0 % 0.0 - 0.5 %[facility] CenterInterpretation and review of laboratory results AbnormalNOWestern Missouri Medical CenterLYMPHOCYTES ABSOLUTE AUTO1.5[facility] Lymphocytes/100 WBC (Bld)25.0 %20.5 - 60.0 %[facility] HospitalH (RBC) [Entitic mass]31.4 pg26.7 - 34.0 pgSt. Joseph Medical CenterMCHC (RBC) [Mass/Vol]33.9 g/dL29.9 - 35.2 g/dLSt. Joseph Medical CenterMCV (RBC) [Entitic vol]92.8 fL81.0 - 99.0 fLSt. Joseph Medical CenterMONOCYTES ABSOLUTE AUTO0.4NOMS HealthcareMonocytes/100 WBC (Bld)7.2 % 1.7 - 12.0 %[facility] CenterNEUTROPHILS ABSOLUTE AUTO3.7[facility] Neutrophils/100 WBC (Bld)62.6 %43.0 - 75.0 %[facility] CenterPlatelet mean volume (Bld) [Entitic vol]10.4 fL9.5 - 13.5 fLNOWestern Missouri Medical CenterTBH EO #0.3[facility] TBH RAO202NMRL [facility] RBC4.04LowNOMS Western Reserve HospitalTB WBC6.0[facility] HealthcareECG 12-LEADon 79-92-3330[address] [address] Electrocardiograph Report Signed Patient: DENI PEACOCK MR#: [id number] : 1960 Acct:[id number] Age/Sex: 64 / F ADM Date: 04/12/25 Loc: PST Attending Dr: Nikia Heard M.D. Ordering Physician: Nikia Heard M.D. Date of Service: 04/12/25 Procedure(s): ECG 12 lead Accession Number(s): [id number] cc: [facility] Test Date: 2025-04-12 Pat Name: DENI PEACOCK Department: Room: - Gender: Female [employer]: : 1960 Requested By: NIKIA HEARD Order Number: [id number] Reading MD: FILIBERTO SHELLEY Measurements Intervals [place] Rate: 57 P: 8 NM: 149 QRS: 44 QRSD: 130 T: 11 QT: 414 QTc: 403 Interpretive Statements SINUS BRADYCARDIA RIGHT BUNDLE BRANCH BLOCK [120+ ms QRS DURATION, UPRIGHT V1, 40+ ms S IN I/aVL/V4/V5/V6] No previous ECG available for comparison Electronically Signed On 04-12-2025 13:13:37 EDT by FILIBERTO SHELLEY Dictated By: Filiberto Shelley M.D. Signed By: 04/12/25 1313 DD/ 0728 TD/TT: Architectural Examiner:TBHRadiology, Radiologist, - 04/12/2025 [place] [address] Electrocardiograph Report Signed Patient: DENI PEACOCK MR#: [id number] : 1960 Acct:[id number] Age/Sex: 64 / F ADM Date: 04/12/25 Loc: PST Attending Dr: Nikia Heard M.D. Ordering Physician: Nikia Heard M.D. Date of Service: 04/12/25 Procedure(s): ECG 12 lead Accession Number(s): [id number] cc: [facility] Test Date: 2025-04-12 Pat Name: DENI PEACOCK Department: Room: - Gender: Female [employer]: : 1960 Requested By: NIKIA HEARD Order Number: [id number] Reading MD: FILIBERTO SHELLEY Measurements Intervals [place] Rate: 57 P: 8 NM: 149 QRS: 44 QRSD: 130 T: 11 QT: 414 QTc: 403 Interpretive Statements SINUS BRADYCARDIA RIGHT BUNDLE BRANCH BLOCK [120+ ms QRS DURATION, UPRIGHT V1, 40+ ms S IN I/aVL/V4/V5/V6] No previous ECG available for comparison Electronically Signed On 04-12-2025 13:13:37 EDT by FILIBERTO SHELLEY Dictated By: Filiberto Shelley M.D. Signed By: 04/12/25 1313 DD/ 0728 TD/TT: Architectural Examiner: [facility] CenterRadiology Study observation (narrative)[facility] 12-LEAD Ordered By: Radiologist Radiology on 71-30-8202XWMKSt. Joseph Medical Center Work Phone: auditory function testson 01-08-0457Tocid Ear: Mild to moderate conductive hearing loss above 250 Hz Left Ear: Normal hearing [facility] HospitalVITAMIN B1 (THIAMINE)on 42-01-5810Gap. B1, Whole Ywywp117.9 nmol/TEhthzf48.5-200.0[facility] CenterComment on above:Performed By: #### CMP, MG, PHOS #### [facility] [address] [place] [address] Dr. Renetta Holland AUTO DIFFon 46-03-8053NTVM #0.0 103/ulNormal0.0-0.1The [facility]man HospitalComment on above:Performed By: #### CMP, MG, PHOS #### [facility] [address] [place] [address] Dr. Renetta Pearsonsophils/100 WBC (Bld)0.4 %Normal0.2-2.0The [facility] Comment on above:Performed By: #### CMP, MG, PHOS #### [facility] [address] [place] [address] Dr. Renetta Machado #0.3 103/ulNormal0.0-0.7The [facility] HospitalComment on above: Performed By: #### CMP, MG, PHOS #### [facility] [address] [place] [address] Dr. Renetta Benjaminosinophils/100 WBC (Bld)3.5 %Normal0.9-7.0The [facility] Comment on above:Performed By: #### CMP, MG, PHOS #### [facility] [address] [place] [address] Dr. Renetta Benjaminrythrocyte distribution width (RBC) [Ratio]12.1 %Scvsct60.0-15.0 The [facility] HospitalComment on above:Performed By: #### CMP, MG, PHOS #### [facility] [address] [place] [address] Dr. Renetta De La GarzaHematocrit (Bld) [Volume fraction]38.1 %Whqmcf92.0-48.0The [facility] HospitalComment on above:Performed By: #### CMP, MG, PHOS #### [facility] [address] [place] [address] Dr. Renetta De La GarzaHemoglobin (Bld) [Mass/Vol]12.9 g/wQAdtvfv94.0-16.0The [facility] HospitalComment on above:Performed By: #### CMP, MG, PHOS #### [facility] [address] [place] [address] Dr. Renetta Cyr #0.03 10e3/ulNormal0.00-0.03The [facility] HospitalComment on above:Performed By: #### CMP, MG, PHOS #### [facility] [address] [place] [address] Dr. Renetta Cyr %0.4 %Normal0.0-0.5The [facility] HospitalComment on above: Performed By: #### CMP, MG, PHOS #### [facility] [address] [place] [address] Dr. Renetta Allen #1.8 103/ulNormal1.2-3.8The [facility] HospitalComment on above:Performed By: #### CMP, MG, PHOS #### [facility] [address] [place] [address] Dr. Yilan ChangLymphocytes/100 WBC (Bld)21.9 %Hszmug84.5-60.0The [facility] HospitalComment on above:Performed By: #### CMP, MG, PHOS #### [facility] [address] [place] [address] Dr. Renetta Valencia DIFF REQNONormalThe [facility] HospitalComment on above: Performed By: #### CMP, MG, PHOS #### [facility] [address] [place] [address] Dr. Renetta Ortega (RBC) [Entitic mass]31.2 kuYtoseg43.7-34.0The [facility] HospitalComment on above:Performed By: #### CMP, MG, PHOS #### [facility] [address] [place] [address] Dr. Renetta Ortega (RBC) [Mass/Vol]33.9 g/qGCnujat06.9-35.2The [facility] HospitalComment on above:Performed By: #### CMP, MG, PHOS #### [facility] [address] [place] [address] Dr. Renetta Ortega (RBC) [Entitic vol]92.0 qOOevlua54.0-99.0The [facility] HospitalComment on above:Performed By: #### CMP, MG, PHOS #### [facility] [address] [place] [address] Dr. Renetta Do #0.4 103/ulNormal0.3-0.8The [facility] HospitalComment on above:Performed By: #### CMP, MG, PHOS #### [facility] [address] [place] [address] Dr. Renetta Knoxocytes/100 WBC (Bld)5.1 %Normal1.7-12.0The [facility] Comment on above:Performed By: #### CMP, MG, PHOS #### [facility] [address] [place] [address] Dr. Renetta Horton #5.6 103/ulNormal1.4-6.5The [facility] HospitalComment on above:Performed By: #### CMP, MG, PHOS #### [facility] [address] [place] [address] Dr. Renetta De La GarzaNeutrophils/100 WBC (Bld)68.7 %Vfxrqa87.0-75.0The [facility] Centerment on above:Performed By: #### CMP, MG, PHOS #### [facility] [address] [place] [address] Dr. Renetta De La GarzaPlatelet mean volume (Bld) [Entitic vol]10.3 fLNormal9.5-13.5The [facility] HospitalComment on above:Performed By: #### CMP, MG, PHOS #### [facility] [address] [place] [address] Dr. Renetta De La GarzaPLT205 103/zgKsnnfd234-461Cjj [facility] Centerment on above: Performed By: #### CMP, MG, PHOS #### [facility] [address] [place] [address] Dr. Renetta De La GarzaRBC4.14 106/ulCritically low4.20-5.40The [facility] on above:Performed By: #### CMP, MG, PHOS #### [facility] [address] [place] [address] Dr. Renetta De La GarzaWBC8.2 103/ulNormal4.0-11.0The [facility] on above: Performed By: #### CMP, MG, PHOS #### [facility] [address] [place] [address] Dr. Renetta De La GarzaFERRITINon 09-74-9111Sugqvrvd [Mass/Vol]375.0 ng/mLCritically high8.0-252.0The [facility] on above:Performed By: #### B12FOL, FETIBC, VITAD, FERR #### [facility] [address] [place] [address] Dr. Renetta Ashley AND TIBCon 10-18-2022% RKZYOPADKH03.7 %NormalThe [facility] Centerment on above:Performed By: #### B12FOL, FETIBC, VITAD, FERR #### [facility] [address] [place] [address] Dr. Renetta Ashley [Mass/Vol]71.0 ug/jUOzysxs44.0-170.0The [facility] Comment on above:Performed By: #### B12FOL, FETIBC, VITAD, FERR #### [facility] [address] [place] [address] Dr. Renetta De La GarzaTIBC WAYGQM417.0 ug/aZDvieqg320.0-450.0The [facility] Comment on above:Performed By: #### B12FOL, FETIBC, VITAD, FERR #### [facility] [address] [place] [address] Dr. Renetta De La GarzaMAGNESIUMon 85-89-1476Dypcitwiq [Mass/Vol]2.1 mg/dLNormal1.8-2.4 The [facility] HospitalComment on above:Performed By: #### CMP, MG, PHOS #### [facility] [address] [place] [address] Dr. Renetta De La GarzaPHOSPHORUSon 11-78-0388Otcxjjxli [Mass/Vol]4.0 mg/dLNormal2.6-4.7 The [facility] HospitalComment on above:Performed By: #### CMP, MG, PHOS #### [facility] [address] [place] [address] Dr. Renetta De La GarzaPROJuan Antonio 14(COMP METB)on 17-42-9818Dmrwmhx [Mass/Vol]3.5 g/dLNormal 3.4-5.0The [facility] HospitalComment on above:Performed By: #### CMP, MG, PHOS #### [facility] [address] [place] [address] Dr. Renetta De La GarzaAlbumin/Globulin [Mass ratio]0.9 {ratio}NormalThe [facility] HospitalComment on above:Performed By: #### CMP, MG, PHOS #### [facility] [address] [place] [address] Dr. Yilan ChangALP [Catalytic activity/Vol]126 U/LCritically ecws31-252Ech [facility] HospitalComment on above:Performed By: #### CMP, MG, PHOS #### [facility] [address] [place] [address] Dr. Renetta SheikhT [Catalytic activity/Vol]23 U/XMtogsj91-91Pzc [facility] HospitalComment on above:Performed By: #### CMP, MG, PHOS #### [facility] [address] [place] [address] Dr. Renetta Conroyon gap [Moles/Vol]7.3 mmol/LNormalThe [facility] HospitalComment on above:Performed By: #### CMP, MG, PHOS #### [facility] [address] [place] [address] Dr. Renetta De La GarzaAST [Catalytic activity/Vol]18 U/ZEnesyk56-36Wat [facility] HospitalComment on above:Performed By: #### CMP, MG, PHOS #### [facility] [address] [place] [address] Dr. Renetta De La GarzaBilirubin [Mass/Vol]0.9 mg/dLNormal0.2-1.0The [facility] Comment on above:Performed By: #### CMP, MG, PHOS #### [facility] [address] [place] [address] Dr. Renetta De La GarzaCalcium [Mass/Vol]9.8 mg/dLNormal8.5-10.1The [facility] Comment on above:Performed By: #### CMP, MG, PHOS #### [facility] [address] [place] [address] Dr. Renetta De La GarzaChloride [Moles/Vol]104 mmol/YGycanu50-886Zbh [facility] Comment on above:Performed By: #### CMP, MG, PHOS #### [facility] [address] [place] [address] Dr. Renetta De La GarzaCO2 [Moles/Vol]30.3 mmol/RCudfdv11.0-32.0The [facility] Comment on above:Performed By: #### CMP, MG, PHOS #### [facility] [address] [address] [address] Renetta De La GarzaCreatinine [Mass/Vol]0.64 mg/dLNormal0.55-1.02The [facility] HospitalComment on above:Performed By: #### CMP, MG, PHOS #### [facility] [address] [address] [address] Renetta BenjaminGFR-AF KYRGYZ>60Normal>=60The [facility] HospitalComment on above:Performed By: #### CMP, MG, PHOS #### [facility] [address] [address] [address] Renetta BenjaminGFR-NON AF KYRGYZ>60Normal>=60The [facility] HospitalComment on above:Performed By: #### CMP, MG, PHOS #### [facility] [address] [place] [address] Dr. Renetta De La GarzaGlobulin (S) [Mass/Vol]3.8 g/dLNormalThe [facility] HospitalComment on above:Performed By: #### CMP, MG, PHOS #### [facility] [address] [address] [address] Renetta De La GarzaGlucose [Mass/Vol]122 mg/dLCritically rhbf51-147Ijv [facility] Centerment on above:Performed By: #### CMP, MG, PHOS #### [facility] [address] [address] [address] Renetta De La GarzaPotassium [Moles/Vol]4.6 mmol/LNormal3.5-5.1The [facility] Comment on above:Performed By: #### CMP, MG, PHOS #### [facility] [address] [address] [address] Renetta De La GarzaProtein [Mass/Vol]7.3 g/dLNormal6.4-8.2The [facility] Comment on above:Performed By: #### CMP, MG, PHOS #### [facility] [address] [address] [address] Renetta De La GarzaSodium [Moles/Vol]137 mmol/RZopbbg874-859Nhm [facility] Comment on above:Performed By: #### CMP, MG, PHOS #### [facility] [address] [place] [address] Dr. Renetta Vail nitrogen [Mass/Vol]16.0 mg/dLNormal7.0-18.0The [facility] HospitalComment on above:Performed By: #### CMP, MG, PHOS #### [facility] [address] [place] [address] Dr. Renetta Vail nitrogen/Creatinine [Mass ratio]25.0 mg/mgNoTogus VA Medical CenterComment on above:Performed By: #### CMP, MG, PHOS #### [facility] [address] [place] [address] Dr. Renetta Rasheed B12 AND FOLATEon 39-25-3157Jmothrulb (Vitamin B12) [Mass/Vol] 547.0 pg/tHLvvpez276.0-986.0The [facility] HospitalComment on above:Performed By: #### B12FOL, FETIBC, VITAD, FERR #### [facility] [address] [place] [address] Dr. Renetta De La GarzaFOLATE23.70 ng/mLNormal8.60-58.90The [facility] HospitalComment on above:Performed By: #### B12FOL, FETIBC, VITAD, FERR #### [facility] [address] [place] [address] Dr. Renetta De La GarzaVITAMIN D 25 OHon 91-67-3134PAD D 25-OH42.0 ng/mLNormalThe [facility] HospitalComment on above:Performed By: #### B12FOL, FETIBC, VITAD, FERR #### [facility] [address] [place] [address] Dr. Renetta HASEE BELOWPomerene HospitalComment on above: Result Comment: <20 ng/mL Vit D deficient 20 - <30 ng/mL Vit D insufficient 30 - 100 ng/mL Vit D sufficient >100 ng/mL Potential ToxicityPerformed By: #### B12FOL, FETIBC, VITAD, FERR #### [facility] [address] [place] [address] Dr. Renetta Holland AUTO DIFFon 45-46-6399HIFM #0.0 103/ulNormal0.0-0.1The [facility] HospitalComment on above:Performed By: #### CMP, MG, PHOS #### [facility] [address] [place] [address] Dr. Renetta De La GarzaBasophils/100 WBC (Bld)0.3 %Normal0.2-2.0The [facility] Comment on above:Performed By: #### CMP, MG, PHOS #### [facility] [address] [place] [address] Dr. Renetta Machado #0.3 103/ulNormal0.0-0.7The [facility] HospitalComment on above: Performed By: #### CMP, MG, PHOS #### [facility] [address] [place] [address] Dr. Renetta Benjaminosinophils/100 WBC (Bld)3.8 %Normal0.9-7.0The [facility] Comment on above:Performed By: #### CMP, MG, PHOS #### [facility] [address] [place] [address] Dr. Renetta Benjaminrythrocyte distribution width (RBC) [Ratio]13.1 %Hplhld03.0-15.0 The [facility] HospitalComment on above:Performed By: #### CMP, MG, PHOS #### [facility] [address] [place] [address] Dr. Renetta De La GarzaHematocrit (Bld) [Volume fraction]40.5 %Aeluer31.0-48.0The [facility] HospitalComment on above:Performed By: #### CMP, MG, PHOS #### [facility] [address] [place] [address] Dr. Renetta De La GarzaHemoglobin (Bld) [Mass/Vol]13.4 g/qKEwcxll65.0-16.0The [facility] HospitalComment on above:Performed By: #### CMP, MG, PHOS #### [facility] [address] [place] [address] Dr. Renetta Cyr #0.02 10e3/ulNormal0.00-0.03The [facility] HospitalComment on above:Performed By: #### CMP, MG, PHOS #### [facility] [address] [place] [address] Dr. Renetta Cyr %0.3 %Normal0.0-0.5The [facility] HospitalComment on above: Performed By: #### CMP, MG, PHOS #### [facility] [address] [place] [address] Dr. Renetta Allen #1.7 103/ulNormal1.2-3.8The [facility] HospitalComment on above:Performed By: #### CMP, MG, PHOS #### [facility] [address] [place] [address] Dr. Renetta Sagehocytes/100 WBC (Bld)22.4 %Ppccwh20.5-60.0The [facility] HospitalComment on above:Performed By: #### CMP, MG, PHOS #### [facility] [address] [place] [address] Dr. Renetta Valencia DIFF REQNONormalThe [facility] HospitalComment on above: Performed By: #### CMP, MG, PHOS #### [facility] [address] [place] [address] Dr. Renetta Ortega (RBC) [Entitic mass]31.2 qzPjsxei36.7-34.0The [facility] HospitalComment on above:Performed By: #### CMP, MG, PHOS #### [facility] [address] [place] [address] Dr. Renetta Ortega (RBC) [Mass/Vol]33.1 g/kWRqtpgb62.9-35.2The [facility] HospitalComment on above:Performed By: #### CMP, MG, PHOS #### [facility] [address] [place] [address] Dr. Renetta Torres (RBC) [Entitic vol]94.2 iUZnitto52.0-99.0The [facility] Centerment on above:Performed By: #### CMP, MG, PHOS #### [facility] [address] [place] [address] Dr. Renetta Do #0.4 103/ulNormal0.3-0.8The [facility] HospitalComment on above:Performed By: #### CMP, MG, PHOS #### [facility] [address] [place] [address] Dr. Renetta Knoxocytes/100 WBC (Bld)4.9 %Normal1.7-12.0The [facility] Comment on above:Performed By: #### CMP, MG, PHOS #### [facility] [address] [place] [address] Dr. Renetta Horton #5.3 103/ulNormal1.4-6.5The [facility] HospitalComment on above:Performed By: #### CMP, MG, PHOS #### [facility] [address] [place] [address] Dr. Renetta Richterutrophils/100 WBC (Bld)68.3 %Bhtxur81.0-75.0The [facility] HospitalComment on above:Performed By: #### CMP, MG, PHOS #### [facility] [address] [place] [address] Dr. Renetta Prieto mean volume (Bld) [Entitic vol]9.8 fLNormal9.5-13.5The [facility] HospitalComment on above:Performed By: #### CMP, MG, PHOS #### [facility] [address] [place] [address] Dr. Renetta De La GarzaPLT192 103/emDlufqj887-151Fhz [facility] HospitalComment on above: Performed By: #### CMP, MG, PHOS #### [facility] [address] [place] [address] Dr. Renetta De La GarzaRBC4.30 106/ulNormal4.20-5.40The [facility] Centerment on above:Performed By: #### CMP, MG, PHOS #### [facility] [address] [address] [address] Renetta MoseleyBC7.7 103/ulNormal4.0-11.0The [facility] on above: Performed By: #### CMP, MG, PHOS #### [facility] [address] [place] [address] Dr. Renetta Maier T4on 14-66-8498Ifvz T4 [Mass/Vol]0.41 ng/dLCritically low 0.76-1.46The [facility] on above:Performed By: #### CMP, MG, PHOS #### [facility] [address] [place] [address] Dr. Renetta Almanza 59-93-3180Fkjw [Mass/Vol]102.0 ug/fNGnhysh35.0-170.0The [facility] on above:Performed By: #### VITB12, IRON, FT4 #### [facility] [address] [place] [address] Dr. Renetta De La GarzaLIPREGINO PROFILEon 26-94-4434UNPF-HDL RATIO [facility] on above:Result Comment: 3.3 - 4.4 LOW RISK 4.4 - 7.1 AVERAGE RISK 7.1 - 11.0 MODERATE RISK >11.0 HIGH RISKPerformed By: #### CMP, MG, PHOS #### [facility] [address] [place] [address] Dr. Renetta De La GarzaCholesterol [Mass/Vol]248 mg/dLCritically high<=200The [facility] on above:Performed By: #### CMP, MG, PHOS #### [facility] [address] [place] [address] Dr. Renetta De La GarzaCholesterol in HDL [Mass/Vol]62 mg/dLCritically zcut51-14Zqx [facility] on above:Performed By: #### CMP, MG, PHOS #### [facility] [address] [place] [address] Dr. Renetta De La GarzaCholesterol in LDL [Mass/Vol]138.4 mg/dLGalion Hospital on above:Performed By: #### CMP, MG, PHOS #### [facility] [address] [place] [address] Dr. Renetta De La GarzaCholesterangelia.total/Cholesterol in HDL [Mass ratio]4.0 {ratio} NormalMetrohealth Parma Medical CenterComduane l. waters hospital on above:Performed By: #### CMP, MG, PHOS #### [facility] [address] [place] [address] Dr. Renetta GallowayL NORMAL> or = 60 mg/dl - LOW CARDIOVASCULAR RISK <40 mg/dl - HIGH CARDIOVASCULAR RISKGalion Hospital on above:Performed By: #### CMP, MG, PHOS #### [facility] [address] [place] [address] Dr. Renetta De La GarzaLDL CALC NORMALSEE BELOWPomerene HospitalComment on above:Result Comment: <100 mg/dl OPTIMAL 100 - 129 mg/dl NEAR OR ABOVE OPTIMAL 130 - 159 mg/dl BORDERLINE HIGH 160 - 189 mg/dl HIGH >190 mg/dl VERY HIGH Performed By: #### CMP, MG, PHOS #### [facility] [address] [place] [address] Dr. Renetta De La GarzaTriglyceride [Mass/Vol]238 mg/dLCritically high<=150[facility] on above:Performed By: #### CMP, MG, PHOS #### [facility] [address] [place] [address] Dr. Renetta De La GarzaVLDL CALC47.6 mg/dLNoTogus VA Medical CenterComduane l. waters hospital on above: Performed By: #### CMP, MG, PHOS #### [facility] [address] [place] [address] Dr. Renetta De La GarzaPHOSPHORUSon 24-44-5179Axdkyfwus [Mass/Vol]3.8 mg/dLNormal2.6-4.7 The [facility] HospitalComduane l[facility] on above:Performed By: #### CMP, MG, PHOS #### [facility] [address] [place] [address] Dr. Renetta Monzon 14(COMP METB)on 80-02-9604Uldpapr [Mass/Vol]3.8 g/dLNormal 3.4-5.0The [facility] HospitalComment on above:Performed By: #### CMP, MG, PHOS #### [facility] [address] [place] [address] Dr. Renetta De La GarzaAlbumin/Globulin [Mass ratio]1.1 {ratio}NormalThe [facility] HospitalComment on above:Performed By: #### CMP, MG, PHOS #### [facility] [address] [place] [address] Dr. Renetta Duran [Catalytic activity/Vol]123 U/LCritically exdk18-628Ntn [facility] HospitalComment on above:Performed By: #### CMP, MG, PHOS #### [facility] [address] [place] [address] Dr. Renetta Berman [Catalytic activity/Vol]25 U/YPgmglz01-70Sxm [facility] HospitalComment on above:Performed By: #### CMP, MG, PHOS #### [facility] [address] [place] [address] Dr. Renetta Matta gap [Moles/Vol]11.0 mmol/LNormalThe [facility] on above:Performed By: #### CMP, MG, PHOS #### [facility] [address] [place] [address] Dr. Renetta De La GarzaAST [Catalytic activity/Vol]26 U/LMvtpcc46-41Iqz [facility] HospitalComment on above:Performed By: #### CMP, MG, PHOS #### [facility] [address] [place] [address] Dr. Renetta Reevesirubin [Mass/Vol]1.6 mg/dLCritically high0.2-1.0The [facility] HospitalComment on above:Performed By: #### CMP, MG, PHOS #### [facility] [address] [place] [address] Dr. Yilan ChangCalcium [Mass/Vol]9.5 mg/dLNormal8.5-10.1The [facility] Comment on above:Performed By: #### CMP, MG, PHOS #### [facility] [address] [place] [address] Dr. Renetta De La GarzaChloride [Moles/Vol]102 mmol/QBfadhc15-382DywMetrohealth Parma Medical Center Comment on above:Performed By: #### CMP, MG, PHOS #### [facility] [address] [place] [address] Dr. Renetta De La GarzaCO2 [Moles/Vol]30.9 mmol/FUmuevx30.0-32.0The [facility] Comment on above:Performed By: #### CMP, MG, PHOS #### [facility] [address] [place] [address] Dr. Renetta De La GarzaCreatinine [Mass/Vol]0.67 mg/dLNormal0.55-1.02The [facility] HospitalComment on above:Performed By: #### CMP, MG, PHOS #### [facility] [address] [place] [address] Dr. Renetta BenjaminGFR-AF KYRGYZ>60Normal>=60The [facility] HospitalComment on above:Performed By: #### CMP, MG, PHOS #### [facility] [address] [place] [address] Dr. Renetta BenjaminGFR-NON AF KYRGYZ>60Normal>=60The [facility] HospitalComment on above:Performed By: #### CMP, MG, PHOS #### [facility] [address] [place] [address] Dr. Renetta De La GarzaGlobulin (S) [Mass/Vol]3.4 g/dLNormalThe [facility] HospitalComment on above:Performed By: #### CMP, MG, PHOS #### [facility] [address] [place] [address] Dr. Renetta De La GarzaGlucose [Mass/Vol]91 mg/kJVjqcon57-517Mpf [facility] Comment on above:Performed By: #### CMP, MG, PHOS #### [facility] [address] [place] [address] Dr. Renetta De La GarzaPotassium [Moles/Vol]3.9 mmol/LNormal3.5-5.1The [facility] Comment on above:Performed By: #### CMP, MG, PHOS #### [facility] [address] [place] [address] Dr. Renetta De La GarzaProtein [Mass/Vol]7.2 g/dLNormal6.4-8.2The [facility] Comment on above:Performed By: #### CMP, MG, PHOS #### [facility] [address] [place] [address] Dr. Renetta De La GarzaSodium [Moles/Vol]140 mmol/CDxqtyu702-540Hpr [facility] Comment on above:Performed By: #### CMP, MG, PHOS #### [facility] [address] [place] [address] Dr. Renetta De La GarzaUrea nitrogen [Mass/Vol]13.0 mg/dLNormal7.0-18.0The [facility] HospitalComment on above:Performed By: #### CMP, MG, PHOS #### [facility] [address] [place] [address] Dr. Renetta Vail nitrogen/Creatinine [Mass ratio]19.4 mg/mgNormalThe [facility] HospitalComment on above:Performed By: #### CMP, MG, PHOS #### [facility] [address] [place] [address] Dr. Renetta WaldenHoremedios 02-92-1127SAE55.447 uIU/mLCritically high0.358-3.740The [facility] HospitalComment on above:Performed By: #### CMP, MG, PHOS #### [facility] [address] [place] [address] Dr. Renetta De La GarzaVITAMIN B12on 51-86-0918Mhedrwwur (Vitamin B12) [Mass/Vol]822.0 pg/hYEmchqi943.0-986.0The [facility] HospitalComment on above:Performed By: #### VITB12, IRON, FT4 #### [facility] [address] [address] [address] Renetta De La GarzaVITAMIN B1 (THIAMINE)on 06-98-4878Nrr. B1, Whole Smdpo535.6 nmol/RIkyusj05.5-200.0The [facility] HospitalComment on above:Performed By: #### CMP, MG, PHOS #### [facility] [address] [address] [address] Renetta De La GarzaFOLATE ([facility])on 30-98-9111Tbdewz>20.0Normal>3.0The [facility] HospitalComment on above:Result Comment: A serum folate concentration of less than 3.1 ng/mL is considered to represent clinical deficiency.Performed By: #### CMP, MG, PHOS #### [facility] [address] [place] [address] Dr. Renetta De La GarzaCBC AUTO DIFFon 96-56-3954EUMK #0.0 103/ulNormal0.0-0.1The [facility] HospitalComment on above:Performed By: #### CBC #### [facility] [address] [place] [address] Dr. Renetta De La GarzaBasophils/100 WBC (Bld)0.3 %Normal0.2-2.0The [facility] Comment on above:Performed By: #### CBC #### [facility] [address] [place] [address] Dr. Renetta Machado #0.3 103/ulNormal0.0-0.7The [facility] HospitalComment on above: Performed By: #### CBC #### [facility] [address] [place] [address] Dr. Renetta Benjaminosinophils/100 WBC (Bld)4.1 %Normal0.9-7.0The [facility] Comment on above:Performed By: #### CBC #### [facility] [address] [place] [address] Dr. Renetta Benjaminrythrocyte distribution width (RBC) [Ratio]12.2 %Eczaqx63.0-15.0 The [facility] HospitalComment on above:Performed By: #### CBC #### [facility] [address] [address] [address] Renetta Ledbetteratocrit (Bld) [Volume fraction]41.4 %Dkndst48.0-48.0The [facility] HospitalComment on above:Performed By: #### CBC #### [facility] [address] [place] [address] Dr. Renetta De La GarzaHemoglobin (Bld) [Mass/Vol]13.7 g/nUSrfevt41.0-16.0The [facility] HospitalComment on above:Performed By: #### CBC #### [facility] [address] [place] [address] Dr. Renetta Cyr #0.01 10e3/ulNormal0.00-0.03The [facility] HospitalComduane l[facility] on above:Performed By: #### CBC #### [facility] [address] [place] [address] Dr. Renetta Cyr %0.1 %Normal0.0-0.5The [facility]Comduane l[facility] on above: Performed By: #### CBC #### [facility] [address] [place] [address] Dr. Renetta Allen #1.8 103/ulNormal1.2-3.8The [facility] on above:Performed By: #### CBC #### [facility] [address] [place] [address] Dr. Renetta Simmonsmphocytes/100 WBC (Bld)24.1 %Rrdddt21.5-60.0The [facility] HospitalComduane l[facility] on above:Performed By: #### CBC #### [facility] [address] [place] [address] Dr. Renetta MckeonUAL DIFF REQNONormalThe [facility] HospitalComduane l[facility] on above: Performed By: #### CBC #### [facility] [address] [place] [address] Dr. Renetta Carvajal (RBC) [Entitic mass]31.4 tyQkleir28.7-34.0The [facility] HospitalComment on above:Performed By: #### CBC #### [facility] [address] [address] [address] Renetta OrtegaHC (RBC) [Mass/Vol]33.1 g/gMJjhlop57.9-35.2The [facility] HospitalComment on above:Performed By: #### CBC #### [facility] [address] [place] [address] Dr. Renetta OrtegaV (RBC) [Entitic vol]94.7 nESmgfhw09.0-99.0The [facility] HospitalComment on above:Performed By: #### CBC #### [facility] [address] [place] [address] Dr. Renetta Do #0.4 103/ulNormal0.3-0.8The [facility] HospitalComment on above:Performed By: #### CBC #### [facility] [address] [place] [address] Dr. Renetta Knoxocytes/100 WBC (Bld)4.9 %Normal1.7-12.0The [facility] Comment on above:Performed By: #### CBC #### [facility] [address] [place] [address] Dr. Renetta Horton #5.1 103/ulNormal1.4-6.5The [facility] HospitalComment on above:Performed By: #### CBC #### [facility] [address] [place] [address] Dr. Renetta Richterutrophils/100 WBC (Bld)66.5 %Qumfqq04.0-75.0The [facility] HospitalComment on above:Performed By: #### CBC #### [facility] [address] [place] [address] Dr. Renetta Dillonlet mean volume (Bld) [Entitic vol]10.6 fLNormal9.5-13.5The [facility] HospitalComment on above:Performed By: #### CBC #### [facility] [address] [place] [address] Dr. Renetta De La GarzaPLT201 103/idUuqxdj061-506Isn [facility] HospitalComment on above: Performed By: #### CBC #### [facility] [address] [place] [address] Dr. Renetta De La GarzaRBC4.37 106/ulNormal4.20-5.40The [facility] HospitalComment on above:Performed By: #### CBC #### [facility] [address] [place] [address] Dr. Renetta De La GarzaWBC7.6 103/ulNormal4.0-11.0The [facility] HospitalComment on above: Performed By: #### CBC #### [facility] [address] [place] [address] Dr. Renetta De La GarzaFERRITINon 23-18-4494Lnopezvv [Mass/Vol]330.0 ng/mLCritically high8.0-252.0The [facility] HospitalComment on above:Performed By: #### CMP, MG, PHOS #### [facility] [address] [place] [address] Dr. Renetta Ashley AND TIBCon 12-04-2021% NDRUQYPHQD62.4 %NormalThe [facility] on above:Performed By: #### CMP, MG, PHOS #### [facility] [address] [place] [address] Dr. Renetta Ashley [Mass/Vol]89.0 ug/xLNglqxt26.0-170.0The [facility] Comment on above:Performed By: #### CMP, MG, PHOS #### [facility] [address] [place] [address] Dr. Renetta De La GarzaTIBC KIRWRI201.0 ug/bBPznsny483.0-450.0The [facility] Comment on above:Performed By: #### CMP, MG, PHOS #### [facility] [address] [place] [address] Dr. Renetta De La GarzaMAGNESIUMon 75-27-1561Cyqfdoveb [Mass/Vol]2.0 mg/dLNormal1.8-2.4 The [facility] HospitalComment on above:Performed By: #### CMP, MG, PHOS #### [facility] [address] [place] [address] Dr. Renetta HullUSon 38-71-2506Fijwauocj [Mass/Vol]3.7 mg/dLNormal2.6-4.7 The [facility] HospitalComment on above:Performed By: #### CMP, MG, PHOS #### [facility] [address] [place] [address] Dr. Renetta De La GarzaPROF 14(COMP METB)on 46-16-2105Hbdyfdd [Mass/Vol]3.9 g/dLNormal 3.4-5.0The [facility] HospitalComment on above:Performed By: #### CMP, MG, PHOS #### [facility] [address] [place] [address] Dr. Renetta De La GarzaAlbumin/Globulin [Mass ratio]1.1 {ratio}NormalThe [facility] HospitalComment on above:Performed By: #### CMP, MG, PHOS #### [facility] [address] [place] [address] Dr. Renetta Duran [Catalytic activity/Vol]115 U/BQqwkmu97-333Vby [facility] HospitalComment on above:Performed By: #### CMP, MG, PHOS #### [facility] [address] [place] [address] Dr. Renetta Berman [Catalytic activity/Vol]46 U/LJotgln48-94Suh [facility] HospitalComment on above:Performed By: #### CMP, MG, PHOS #### [facility] [address] [place] [address] Dr. Renetta Matta gap [Moles/Vol]10.9 mmol/LNormalThe [facility] on above:Performed By: #### CMP, MG, PHOS #### [facility] [address] [place] [address] Dr. Renetta Auguste [Catalytic activity/Vol]39 U/LCritically rwaz51-20Qez [facility] HospitalComment on above:Performed By: #### CMP, MG, PHOS #### [facility] [address] [address] [address] Renetta De La GarzaBilirubin [Mass/Vol]1.2 mg/dLCritically high0.2-1.0The [facility] HospitalComment on above:Performed By: #### CMP, MG, PHOS #### [facility] [address] [address] [address] Renetta De La GarzaCalcium [Mass/Vol]9.5 mg/dLNormal8.5-10.1The [facility] Comment on above:Performed By: #### CMP, MG, PHOS #### [facility] [address] [place] [address] Dr. Renetta De La GarzaChloride [Moles/Vol]104 mmol/PYzehcf70-865Lty [facility] Comment on above:Performed By: #### CMP, MG, PHOS #### [facility] [address] [place] [address] Dr. Renetta De La GarzaCO2 [Moles/Vol]29.7 mmol/HIlvgcb21.0-32.0The [facility] Comment on above:Performed By: #### CMP, MG, PHOS #### [facility] [address] [place] [address] Dr. Renetta De La GarzaCreatinine [Mass/Vol]0.70 mg/dLNormal0.55-1.02The [facility] HospitalComment on above:Performed By: #### CMP, MG, PHOS #### [facility] [address] [place] [address] Dr. Renetta BenjaminGFR-AF KYRGYZ>60Normal>=60The [facility] HospitalComment on above:Performed By: #### CMP, MG, PHOS #### [facility] [address] [place] [address] Dr. Renetta BenjaminGFR-NON AF KYRGYZ>60Normal>=60The [facility] HospitalComment on above:Performed By: #### CMP, MG, PHOS #### [facility] [address] [place] [address] Dr. Renetta De La GarzaGlobulin (S) [Mass/Vol]3.6 g/dLNormGrand Lake Joint Township District Memorial HospitalComment on above:Performed By: #### CMP, MG, PHOS #### [facility] [address] [place] [address] Dr. Renetta De La GarzaGlucose [Mass/Vol]135 mg/dLCritically wfgm70-453Plx [facility] HospitalComment on above:Performed By: #### CMP, MG, PHOS #### [facility] [address] [place] [address] Dr. Renetta De La GarzaPotassium [Moles/Vol]3.6 mmol/LNormal3.5-5.1The [facility] Comment on above:Performed By: #### CMP, MG, PHOS #### [facility] [address] [place] [address] Dr. Renetta De La GarzaProtein [Mass/Vol]7.5 g/dLNormal6.4-8.2The [facility] Comment on above:Performed By: #### CMP, MG, PHOS #### [facility] [address] [place] [address] Dr. Renetta De La GarzaSodium [Moles/Vol]141 mmol/EOganbd164-898Gai [facility] Comment on above:Performed By: #### CMP, MG, PHOS #### [facility] [address] [place] [address] Dr. Renetta De La GarzaUrea nitrogen [Mass/Vol]10.0 mg/dLNormal7.0-18.0The [facility] HospitalComment on above:Performed By: #### CMP, MG, PHOS #### [facility] [address] [place] [address] Dr. Renetta De La GarzaUrea nitrogen/Creatinine [Mass ratio]14.3 mg/mgNoTogus VA Medical CenterComment on above:Performed By: #### CMP, MG, PHOS #### [facility] [address] [place] [address] Dr. Renetta De La GarzaVITAMIN B12on 05-90-8017Wipbdnyrz (Vitamin B12) [Mass/Vol]1050.0 pg/mLCritically nfga697.0-986.0The [facility] HospitalComment on above:Performed By: #### CMP, MG, PHOS #### [facility] [address] [address] [address] Renetta De La GarzaVITAMIN D 25 OHon 05-84-6676CVN D 25-OH43.8 ng/mLNBlanchard Valley Health System [facility] HospitalComment on above:Performed By: #### CMP, MG, PHOS #### [facility] [address] [address] [address] Renetta Rasheed D RANGESSEE [facility] HospitalComment on above: Result Comment: <20 ng/mL Vit D deficient 20 - <30 ng/mL Vit D insufficient 30 - 100 ng/mL Vit D sufficient >100 ng/mL Potential ToxicityPerformed By: #### CMP, MG, PHOS #### [facility] [address] [place] [address] Dr. Renetta De La Garza Vital Signs Date TimeVital SignValuePerforming AbxgmlpbhMmmnelpg16-92-2910 09:03-0400Body uctlpn168.4 cmNikia Heard MD Work Phone: [phone] [place], [place] 2930210-08-2025 09:03-0400Body mass index (BMI) [Ratio]32.22 kg/o0TfiuypNikia Heard MD Work Phone: [phone] [place], [place] 2930210-08-2025 09:03-0400Body gvfova86.84 kgNikia Heard MD Work Phone: [phone] [place], [place] 2930210-08-2025 09:03-0400Diastolic blood otyhqbgd12 mm[Hg]Nikia Heard MD Work Phone: [phone]10-08-2025 09:03-0400Heart rate72 /min Nikia Heard MD Work Phone: [phone] [place], [place] [address]Sbmdhziqtv81-38-5863 09:03-0400Systolic blood hwhfroyp722 mm[Hg]Nikia Heard MD Work Phone: [phone] CenterMpdmflcpkj92-67-1231 09:53-0400Body wvcups232.4 cmNikia Heard MD Work Phone: NOWestern [facility] CenterSbojahhwhy48-89-3597 09:53-0400Body mass index (BMI) [Ratio]32.42 kg/t6ElncwvNikia Heard MD Work Phone: HEWestern [facility] CenterSameewkmjq31-53-3278 09:53-0400Body rrgqot80.3 kg Nikia Heard MD Work Phone: [facility] CenterEnmfhlxfnx41-01-0646 09:53-0400Diastolic blood vbydgwrb16 mm[Hg]Nikia Heard MD Work Phone: [facility] CenterWcvyqoxlgz09-43-7420 09:53-0400Heart rate62 /min Nikia Heard MD Work Phone: [facility] CenterChrwqpndbw26-31-6764 09:53-0400Systolic blood mxaktruz999 mm[Hg]Nikia Heard MD Work Phone: [facility] Encounters Encounter DateEncounter TypeCare ProviderFacilityStart: 04-13-2025 End: 38-58-7527Vjiwpguxk encounterNikia Heard MD Work Phone: [facility] [place] OtolaryngologyComment on above:horse riding after tube?Start: 04-12-2025 End: 93-79-2246Fcfsemumn Result EncounterNikia Heard MD Work Phone: [facility] External Department UnsolicitedStart: 04-12-2025 End: 60-60-2406Sphvbuxdr Result EncounterNikia Heard MD Work Phone: [facility] External Department UnsolicitedStart: 03-29-2025 End: 79-91-8175Shaqndtxc encounterSara Roger KNIGHT [place] OtolaryngologyComment on above:PST informationStart: 03-23-2025 End: 05-28-1627Xkfymc flowsheetNikia Heard MD Work Phone: [facility] [place] OtolaryngologyStart: 03-23-2025 End: 02-86-2523Sbxwsg Mirela Heard MD Work Phone: [facility] [place] OtolaryngologyStart: 03-23-2025 End: 38-94-8526Fynznt outpatient visit 25 minutesNikia Heard MD Work Phone: [facility] [place] OtolaryngologyComment on above:OME (otitis media with effusion), right (Primary Dx); ETD (Eustachian tube dysfunction), right; Conductive hearing loss of right ear with unrestricted hearing of left earStart: 03-23-2025 End: 63-95-1164bkufsdlcabZVIVVP H TIMMISNot AvailableStart: 03-16-2025 End: 44-87-6999[facility] health centerJdjackie [facility] Work Phone: [facility] [place] AudiologyStart: 03-16-2025 End: 29-73-9354Eqktln [facility] hospitalJameelmulticare [facility] Work Phone: [facility] [place] AudiologyStart: 03-16-2025 End: 86-32-8644Bkdxtplq SupportCare One At R[facility] Work Phone: [facility] [place] AudiologyComment on above:Conductive hearing loss of right ear with unrestricted hearing of left ear (Primary Dx); Right otitis media with effusionStart: 01-04-2025 End: 24-93-1701Gnjyed Mirela Heard MD Work Phone: [facility] CI ENTStart: 01-04-2025 End: 06-61-6005Wfspbr Mirela Heard MD Work Phone: [facility] CI ENTStart: 01-04-2025 End: 56-08-9516Vbpcdu outpatient new 45 minutesNikia Heard MD Work Phone: NOJR CI ENTComment on above:OME (otitis media with effusion), right (Primary Dx)Start: 01-04-2025 End: 41-41-1365bzpfputlckPQMWII H TIMMISNot AvailableStart: 37-83-5546Allvxzg encounter statusNikia Heard MD Work Phone: [facility] HealthcareStart: 10-18-2022 End: 28-75-5136lmlzuvbcwdEV DOCTOR MISCFacility:M0Sorpb: 19-16-4061Zbuccdawb for general adult medical examination without abnormal findingsDR DANELLE [facility] HospitalStart: 03-19-2022 End: 06-58-2552vzpdxiwqvtUF MARCIA E BRAUNFacility:O9Ditdw: 03-19-2022 End: 72-50-1012Dagholyba for general adult medical examination without abnormal findingsDR DANELLE AGUILARFacility:H0Nuess: 12-04-2021 End: 50-02-5838tgbdzjqaawXM MARCIA E BRAUNFacility:H1 Procedures DateProcedureProcedure DetailPerforming ClinicianStart: 62-95-1620NMO CBC WITH AUTO DIFFNikia Heard MD Work Phone: Start: 26-51-5257YOL 12-LEADNikia Heard MD Work Phone: Start: 87-40-7266KMYENJJI FUNCTION TESTSJameelmulticare [facility] medical center [facility] Work Phone: Plan of Treatment DateCare ActivityDetailAuthorStart: 05-24-2025 End: 78-38-2803Ndcuxok encounter flsaekobs49/09/2025 9:00 AM EST Office Visit [facility] [place] [facility] [address] [place] [id number] Nikia Heard MD [address] [address] [place] [address] [facility] [place] OtolaryngologyStart: 03-23-2025 End: 95-45-4726Lnbzklq encounter procedureNOMS [place] OtolaryngologyComment on above:ArrivedStart: 03-16-2025 End: 20-57-8862Blbmzqvm Naocccy7303/16/2025 9:30 AM EDT Clinical Support [facility] [place] [facility] [address] [place], [id number] Lauren Schulz, [facility] [address] [address] ArrivedNOMS [place] AudiologyComment on above:Arrived Start: 01-04-2025 End: 60-57-8652Jncoaku encounter /22/2025 10:00 AM EDT Office Visit [facility] [address] [place] [address] Nikia Heard MD [address] [place] [address] ArrivedNOMS CI ENTComment on above:Arrived Payers DatePayer CategoryPayerPolicy [id number] ..[id number] [id number] [id number] 2.16.840.1.003141.3.57[id number] 2.16.840.1.515427.3.57[id number] 2.16.840.1.778428.3.57[id number] 2.16.840.1.775185.3.579.2.1259 Social History DateTypeDetailFacilityTobacco smoking status NHISTobacco smoking consumption unknownNOIL HealthcareStart: 96-96-6841Txk assigned at birthNot on [facility] HealthcareStart: 01-04-2025 End: 57-84-1170Jnipgs identityNot on [facility] HealthcareStart: 26-98-6622Lpwemoc smoking status NHISNever smoked tobaccoBLUE MOUNTAIN [facility] HealthcareStart: 23-09-8290Whkztpp use and exposureSmokeless tobacco non-userBLUE MOUNTAIN HOSPITAL, INC. HealthcareStart: 01-04-2025 End: 17-10-1293Nntyekbjz beverage intakeLifetime non-drinker (finding)[facility] HealthcareStart: 01-04-2025 End: 07-40-8121Aipkigo of Social functionBLUE MOUNTAIN HOSPITAL, INC. HealthcareStart: 10-91-4684Ybz FemaleBLUE MOUNTAIN HOSPITAL, INC. Healthcare Clinical Notes 01-04-2025 to 04-13-2025 Note Date & [id number] Telephone encounter Note* Telephone Encounter - Pamela Heard - 04/13/2025 3:27 PM EDT Left a detailed message on pt's vm. [facility] [id number] Miscellaneous Notes* Telephone Encounter - Pamela Heard - 04/13/2025 3:27 PM EDT Left a detailed message on pt's vm. * Telephone Encounter - Nikia Heard MD - 04/13/2025 2:40 PM EDT She should not go horse riding for at least 24 hours after procedure * Telephone Encounter - Pamela Heard - 04/13/2025 1:55 PM EDT Pt is scheduled for tube 04/21/25. She wants to know if you can go horse back riding after the tube is put in. documented in this encounterSt. Joseph Medical [id number] Telephone encounter Note* Telephone Encounter - Nikia Heard MD - 04/13/2025 2:40 PM EDT She should not go horse riding for at least [address] [facility] [id number] Telephone encounter Note* Telephone Encounter - Pamela Heard - 04/13/2025 1:55 PM EDT Pt is scheduled for tube 04/21/25. She wants to know if you can go horse back riding after the tube is put in. [facility] [id number] Telephone encounter Note* Telephone Encounter - Pamela Heard - 04/04/2025 8:50 AM EDT Pt called back/told pt appt info [facility] [id number] Miscellaneous Notes* Telephone Encounter - Pamela Heard - 04/04/2025 8:50 AM EDT Pt called back/told pt appt info for [facility]. * Telephone Encounter - Anna Duran MA - 03/29/2025 4:14 PM EDT Called left message to call back office. Her PST is scheduled for 04/12 At 9:00 am at [facility] documented in this encounterSt. Joseph Medical [id number] Telephone encounter Note* Telephone Encounter - Anna Duran MA - 03/29/2025 4:14 PM EDT Called left message to call back office. Her PST is scheduled for 04/12 At 9:00 am at [facility] [id number] History of Present illness Narrative* Nikia Heard MD - 03/23/2025 9:10 AM EDT Subjective Patient ID: Deni Peacock is a 64 y.o. female who presents for Otitis Media (Follow up audio 03/16/25) Audio shows RT CHL and a flat tymp Review of Systems All other systems reviewed and are negative. 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 Primary hypertension 05/10/2014 Right otitis media with effusion 12/29/2024 Screening mammogram for breast cancer 12/29/2024 Wellness examination 12/29/2024 Resolved Ambulatory Problems Diagnosis Date Noted No Resolved Ambulatory Problems Past Medical History: Diagnosis Date Ear problems Otitis media, chronic Past Surgical History: Procedure Laterality Date GASTRIC BYPASS Allergies Allergen Reactions Fenofibrate Other Reaction(s): Hives Current Outpatient Medications on File Prior to Visit Medication Sig Dispense Refill fluticasone (Flonase) 50 MCG/ACT nasal spray 2 sprays on the right side twice daily. Shake gently. Before first use, prime pump. After use, clean tip and replace cap. 48 g 3 levothyroxine (Synthroid, Levoxyl) 137 MCG tablet .COMPLEX lisinopril 10 MG tablet .COMPLEX No current facility-administered medications on file prior to visit. Objective Last Recorded Vitals Vitals: 03/23/25 0903 BP: 141/77 Pulse: 72 ENT Physical Exam Ear Ear comments: RT - serous effusion Respiratory Inspection: breathing unlabored; normal breathing rate; Auscultation: breath sounds are clear; Cardiovascular Inspection: extremities are warm and well perfused; no peripheral edema present; Auscultation: regular rate and rhythm; Assessment/Plan Diagnoses and all orders for this visit: OME (otitis media with effusion), right ETD (Eustachian tube dysfunction), right Conductive hearing loss of right ear with unrestricted hearing of left ear Right OME and ETD persist. 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 documented in this [facility]10-01-2025 History of Present illness Narrative* MINESH Jade - 03/16/2025 9:30 AM EDT History: Pt was referred to ENT because of right OM. Pt saw Dr Heard in December and was told she has fluid in her right ear. She has been using Flonase for 2 months and her ear ear is not better. Pt hears an ocean in her right ear and her hearing is decreased on the right side. Pt denies noise exposure. Otoscopic Exam: Ear canal clear and TM intact AU Pure Tone Audiometry Right Ear: Mild to moderate conductive hearing loss above 250 Hz Left Ear: Normal hearing Speech Audiometry Right SRT = 45 dB and word discrimination score at 65 dBHL (masked) = 100% Left SRT = 20 dB and word discrimination score at 50 dBHL = 100% Tympanometry Right Ear: Type B tympanogram Left Ear: Type A tympanogram documented in this [facility]07-22-2025 History of Present illness Narrative* Nikia Heard MD - 01/04/2025 10:00 AM EDT Subjective Patient ID: Deni Peacock is a 64 y.o. female who presents for Otitis Media Pt reports a 2 week h/o muffled hearing on the RT. Noticed shortly after a tooth fx. Pt told her ear was swollen. Tx with Nasocort 2 days. Review of Systems All other systems reviewed and are negative. 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 Primary hypertension 05/10/2014 Right otitis media with effusion 12/29/2024 Screening mammogram for breast cancer 12/29/2024 Wellness examination 12/29/2024 Resolved Ambulatory Problems Diagnosis Date Noted No Resolved Ambulatory Problems Past Medical History: Diagnosis Date Ear problems Otitis media, chronic Past Surgical History: Procedure Laterality Date GASTRIC BYPASS Allergies Allergen Reactions Fenofibrate Other Reaction(s): Hives Current Outpatient Medications on File Prior to Visit Medication Sig Dispense Refill levothyroxine (Synthroid, Levoxyl) 137 MCG tablet .COMPLEX lisinopril 10 MG tablet .COMPLEX No current facility-administered medications on file prior to visit. Objective Last Recorded Vitals Vitals: 01/04/25 0953 BP: 158/84 Pulse: 62 ENT Physical Exam Constitutional Appearance: patient appears well-developed, well-nourished and well-groomed, Head and Face Appearance: head appears normal and face appears atraumatic; Ear Ear Canals: right ear canal normal; left ear canal normal; Tympanic Membranes: left tympanic membrane normal; Ear comments: Right serous effusion Nose External Nose: nares patent bilaterally; external nose normal; Internal Nose: septum normal; Oral Cavity/Oropharynx Tongue: normal; Oral mucosa: normal; Hard palate: normal; Soft palate: normal; Tonsils: normal; Neck Neck: neck normal; neck palpation normal; Thyroid: thyroid normal; Respiratory Inspection: breathing unlabored; normal breathing rate; Auscultation: breath sounds are clear; Cardiovascular Inspection: extremities are warm and well perfused; no peripheral edema present; Auscultation: regular rate and rhythm; Assessment/Plan Diagnoses and all orders for this visit: OME (otitis media with effusion), right Pt has right OME. Tx with flonase BID on the right and a short course of prednisone and check an audio 2 mo. 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 documented in this encounter [facility] Healthcare Summary Purpose Family History No Family History Records FoundNo Family History Records Found Advance Directives No Advanced Directives Records FoundNo Advanced Directives Records Found Additional Source Comments INFORMATION SOURCE (unrecogn ized section and content) DATE CREATED AUTHOR 10/25/2022 [facility] DATE CREATED AUTHOR AUTHOR'S MELINA ATROCIO 03/25/2025 [facility] EPIC Care Teams (unrecognized sec tion and content) Team MemberRelationshipSpecialtyStart DateEnd Date Danelle Aguilar MD [address] [phone] PCP - GeneralFamily Medicine12/28/24Team MemberRelationshipSpecialtyStart DateEnd Date Danelle Aguilar MD [address] [phone] PCP - GeneralFamily Medicine12/28/24Team MemberRelationshipSpecialtyStart DateEnd Date Danelle Aguilar MD [address] [place] [address] PCP - GeneralFamily Medicine12/28/24Team MemberRelationshipSpecialtyStart DateEnd Date Danelle Aguilar MD [address] [place] [address] PCP - [facility]12/28/24Team MemberRelationshipSpecialtyStart DateEnd Date Danelle Aguilar MD [address] [place] [address] PCP - [facility]12/28/24Team MemberRelationshipSpecialtyStart DateEnd Date Danelle Aguilar MD [address] [place] [address] PCP - [facility]12/28/24 Reason for Visit (unrecogniz ed section and content) ReasonCommentsOtitis MediaSpecialtyDiagnoses / ProceduresReferred By Contact Referred To ContactOtolaryngology Diagnoses Unspecified nonsuppurative otitis media, right ear Procedures NM UNLISTED EVALUATION AND MANAGEMENT SERVICE [facility] [address] [address] Phone: tel: fax: Nikia Heard MD [address] [place] [address] Phone: tel: fax: Referral IDStatusReasonStart DateExpiration DateVisits RequestedVisits [id number] MediaFollow up audio 03/16/25ReasonOnset DateCommentsPST uwwdzxnduzw74/14/2025ReasonOnset Date Commentshorse riding after tube?04/13/2025 FOR RECORDS PERTAINING TO PATIENTS WHO ARE OR HAVE BEEN ENROLLED IN A CHEMICAL DEPENDENCY/SUBSTANCEABUSE PROGRAM, SOME INFORMATION MAY BE OMITTED. This clinical summary was aggregated from multiple sources. Caution should be exercised in using it in the provision of clinical care. This summary normalizes information from multiple sources, and as a consequence, information in this document may materially change the coding, format and clinical context of patient data. In addition, data may be omitted in some cases. CLINICAL DECISIONS SHOULD BE BASED ON THE PRIMARY CLINICAL RECORDS. [facility] provides no warranty or guarantee of the accuracy or completeness of information in this document.
[2025-04-21] MEDS: OXYMETAZOLINE HCL 0.05% NASAL SPRAY 30 SPRAY NS (11:49)
[2025-04-21] MEDS: CIPROFLOXACIN HCL/DEXAMETH 0.3%/0.1% OTIC SUSP 150 DROP/7.5 ML BOTTLE OT (11:56)
== END 2025-04-21 13:22 | disposition home or self-care (01) ==
LOC: SURGOUT 10:25
PROVIDERS: PCP Family Medicine; Visit Provider Otolaryngology
PROC: (CPT 126; principal; 2025-04-21 11:30)
PROC: (CPT 126; 2025-04-21 11:30)
DX: H69.91 Unspecified Eustachian tube disorder, right ear (principal); H65.91 Unspecified nonsuppurative otitis media, right ear; Z98.84 Bariatric surgery status; H90.11 Conductive hearing loss, unilateral, right ear, with unrestricted hearing on the contralateral side; I10 Essential (primary) hypertension; G89.29 Other chronic pain; K21.9 Gastro-esophageal reflux disease without esophagitis; E03.9 Hypothyroidism, unspecified; M19.90 Unspecified osteoarthritis, unspecified site
CPT/HCPCS: 31231; 69436; 36415; J1100; J1200; J2405; J2704; J3010